=== PATIENT | male | born 1940 | race Caucasian/White ===

== ENCOUNTER 2016-12-17 21:16 | Emergency (ER) | payer MEDICARE, OTHER ==
[2016-12-17] MEDS ORDERED: SODIUM CHLORIDE 0.9% 1,000 ML IV ONE (21:49)
[2016-12-17] MEDS ORDERED: diltiaZEM INJ 5 MG/ML VIAL IVP STA (21:55)
[2016-12-17 21:57] LABS: BASOPHILS # (AUTO) 0.1 10^3/uL (0.0-0.1); BASOPHILS % (AUTO) 0.7 %; EOSINOPHILS # (AUTO) 0.1 10^3/uL (0.0-0.7); EOSINOPHILS % (AUTO) 0.4 %; HCT - HEMATOCRIT 34.1 % (42.0-52.0); HGB - HEMOGLOBIN 11.5 g/dL (14.0-18.0); LYMPHOCYTES # (AUTO) 1.1 10^3/uL (1.5-3.5); LYMPHOCYTES % (AUTO) 8.7 %; MEAN CORPUSCULAR HEMOGLOBIN 32.4 pg (27.0-31.0); MEAN CORPUSCULAR HGB CONC 33.7 g/dL (32.0-36.0); MEAN CORPUSCULAR VOLUME 96.2 fL (80.0-94.0); MEAN PLATELET VOLUME 7.9 fL (7.4-11.4); MONOCYTES # (AUTO) 0.8 10^3/uL (0.0-1.0); MONOCYTES % (AUTO) 6.5 %; NEUTROPHILS # (AUTO) 10.3 10^3/uL (1.5-6.6); NEUTROPHILS % (AUTO) 83.7 %; RED BLOOD COUNT 3.55 10^6/uL (4.70-6.10); RED CELL DISTRIBUTION WIDTH 15.4 % (12.0-15.0); UNCORRECTED WHITE BLOOD COUNT 12.4 x10^3/uL; WHITE BLOOD COUNT 12.4 x10^3/uL (4.8-10.8)
[2016-12-17] MEDS ORDERED: diltiaZEM INJ 5 MG/ML VIAL ONE (22:11)
[2016-12-17 22:13] LABS: ALBUMIN/GLOBULIN RATIO 1.1 (1.0-2.2); BILIRUBIN,TOTAL 2.1 mg/dL (0.2-1.0); CREATININE 1.6 mg/dL (0.6-1.2); MAGNESIUM 1.8 mg/dL (1.7-2.8); POTASSIUM 4.9 mmol/L (3.5-5.0); TOTAL PROTEIN 6.6 g/dL (6.7-8.2)
--- NOTE | 2016-12-17 22:29 | XRAY Preliminary Report ---
Exam: XR Chest 2 View PA/LAT IMPRESSION: No acute pulmonary process. [facility] SITE ID: [id number]
[2016-12-17 22:37] LABS: INR 2.8 (0.8-1.2); PT - PROTHROMBIN TIME 32.2 secs (9.9-12.6)
--- NOTE | 2016-12-17 22:46 | XRAY Report ---
EXAM: CHEST RADIOGRAPHY EXAM DATE: 12/17/2016 10:17 PM. CLINICAL HISTORY: Chest pain. COMPARISON: None. TECHNIQUE: 2 views. FINDINGS: Lungs/Pleura: No focal opacities evident. No pleural effusion. No pneumothorax. Normal volumes. Mediastinum: Cardiac defibrillator is noted with lead in the right ventricle. EKG leads overlie the c hest. 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 IMPRESSION: No acute pulmonary process. [facility] Referring Provider Line: [phone] SITE ID: [id number]
[2016-12-18 00:29] LABS: BILIRUBIN,URINE NEGATIVE (NEGATIVE); PH,URINE 5.5 PH (5.0-7.5); UA w/ MICROSCOPIC CHARGE YES
[2016-12-18 00:37] LABS: UR CULTURE IF IND NOT INDICATED; WBC,URINE 0-3 /HPF (0-3)
--- NOTE | 2016-12-18 01:07 | ED Physician Documentation ---
PD HPI SYNCOPE - Stated complaint Stated Complaint: LIGHTHEADEDNESS - Chief complaint Chief Complaint: General - History obtained from History obtained from: Patient, Family - History of Present Illness Timing - onset: Yesterday Duration: Minutes Preceding symptoms: Light headed Associated symptoms: No: Chest pain, Palpitations, Dyspnea Contributing factors: No: Recent med change Injury occurred: None Similar symptoms before: Has not had sx before Recently seen: Not recently seen - Additional information Additional information: Patient is a 76 year old male with a history of a fib who is presenting to the emergency department for light headedness when he stands up. Patient states that yesterday he had some chest pain, that required nitro. Patient states that his chest pain went away but today he felt dizzy when he stood up. Upon my initial evaluation in the emergency department patient was awake alert and comfortable when lying down, he only had dizziness with standing. Review of Systems Constitutional: denies: Fever, Chills, Myalgias Eyes: denies: Decreased vision, Photophobia Ears: denies: Ear pain, Drainage/discharge Nose: denies: Rhinorrhea / runny nose, Congestion Throat: denies: Oral lesions / sores, Sore throat Cardiac: denies: Chest pain / pressure, Palpitations, Pedal edema, Calf pain Respiratory: denies: Dyspnea, Cough, Wheezing GI: denies: Abdominal Pain, Nausea, Vomiting : denies: Dysuria, Frequency, Hesitancy Skin: denies: Rash, Lesions, Abrasion (s) Musculoskeletal: denies: Neck pain, Back pain, Extremity pain, Joint pain Neurologic: reports: Other (dizzy). denies: Generalized weakness, Focal weakness, Syncope, Seizure, Confused, Altered mental status, LOC Immunocompromised: denies: Immunocompromised PD PAST MEDICAL HISTORY - Past Medical History Past Medical History: Yes Cardiovascular: Hypertension, Angina, Atrial fibrillation, Arrhythmia Respiratory: None Endocrine/Autoimmune: Type 2 diabetes GI: None : None HEENT: None Psych: None Musculoskeletal: None Derm: None - Past Surgical History Past Surgical History: Yes General: Appendectomy, Colonoscopy Ortho: Shoulder arthroplasty Cardiovascular: Pacemaker, AICD HEENT: Tonsil/Adenoidectomy Derm: Skin cancer surgery - Present Medications Home Medications: Ambulatory Orders Medication Instructions Recorded Confirmed Allopurinol 100 mg PO BID 11/01/13 12/17/16 Aspirin Chewable [St Momo 81 mg PO DAILY 11/01/13 12/17/16 Aspirin] Atenolol 25 mg PO DAILY 11/01/13 12/17/16 Digoxin [Lanoxin] 0.25 mg PO DAILY 11/01/13 12/17/16 Lisinopril 10 mg PO TID 11/01/13 12/17/16 Warfarin [Coumadin] 5 mg PO DAILY 11/01/13 12/17/16 glipiZIDE [Glucotrol] 5 mg PO BID 11/01/13 12/17/16 Furosemide 30 mg PO DAILY 02/28/14 12/17/16 Magnesium Chloride [Slo Mag] 64 mg PO TID 02/28/14 12/17/16 [place]-3 Fatty Acids [Fish Oil] 1,000 mg PO DAILY 02/28/14 12/17/16 Atorvastatin [Lipitor] 20 mg QPM 12/17/16 12/17/16 - Allergies Allergies/Adverse Reactions: Allergies Allergy/AdvReac Type Severity Reaction Status Date / Time hydrocodone bitartrate * Allergy Severe Hallucinati Verified 12/17/16 21:47 [From [place]] ons quinine Allergy Severe Confusion Verified 12/17/16 21:47 - Social History Does the pt smoke?: No Smoking Status: Never smoker Does the pt drink ETOH?: No Does the pt have substance abuse?: No - Immunizations Immunizations are current?: Yes PD ED PE NORMAL - Vitals Vital signs reviewed: Yes - General General: Alert and oriented X 3, No acute distress - HEENT HEENT: Atraumatic, PERRL, Pharynx benign - Neck Neck: Supple, no meningeal sign, No JVD - Respiratory Respiratory: No respiratory distress, Clear bilaterally - Abdomen Abdomen: Soft, Non tender, Non distended - Derm Derm: Normal color, No rash - Extremities Extremities: No deformity, No tenderness to palpate, No edema, No calf tenderness / cord - Neuro Neuro: Alert and oriented X 3, No motor deficit, No sensory deficit, Normal speech - Psych Psych: Normal mood, Normal affect PD ED PE EXPANDED - Cardiac Cardiac: Abnormal Rate, Irregularly irregular, Radial strong equal - Rectal Rectal: Heme Occult Pos - QC +, Other (light colored stools). No: Mass, Hemorrhoid, Fissure Results - Vitals Vitals: Vital Signs - 24 hr 07/12/17/16 12/17/16 21:25 21:42 21:45 Temperature 36.4 C L Heart Rate 110 H 133 H Respiratory 17 18 Rate Blood Pressure 110/66 106/43 L Blood Pressure 106/43 L [Left] Blood Pressure 110/69 [Right] O2 Saturation 98 96 12/17/16 12/17/16 12/17/16 22:15 22:40 23:17 Temperature Heart Rate 125 H 106 H 108 H Respiratory 16 20 20 Rate Blood Pressure 83/54 L 105/53 L 100/45 L Blood Pressure [Left] Blood Pressure [Right] O2 Saturation 98 99 12/17/16 12/18/16 12/18/16 23:44 00:36 01:00 Temperature Heart Rate 93 114 H 118 H Respiratory 17 18 Rate Blood Pressure 102/43 L 120/52 L 98/48 L Blood Pressure [Left] Blood Pressure [Right] O2 Saturation 99 100 12/18/16 12/18/16 12/18/16 01:15 01:25 01:30 Temperature 36.6 C Heart Rate 102 H 112 H 104 H Respiratory 20 Rate Blood Pressure 57/29 L 107/46 L 111/54 L Blood Pressure [Left] Blood Pressure [Right] O2 Saturation 98 12/18/16 01:40 Temperature Heart Rate 109 H Respiratory 17 Rate Blood Pressure 102/67 Blood Pressure [Left] Blood Pressure [Right] O2 Saturation 99 Oxygen O2 Source Room air - EKG (time done) 2122 Rate: Rate (enter#) (111) Rhythm: Atrial fibrillation D Hanis: Normal Ischemia: ST depression (lateral lead), Non specific changes Compare to prior EKG: Old EKG unavailable - Labs Labs: Laboratory Tests 12/17/16 12/17/16 12/17/16 21:50 21:50 21:50 WBC 12.4 H RBC 3.55 L Hgb 11.5 L Hct 34.1 L MCV 96.2 H MCH 32.4 H MCHC 33.7 RDW 15.4 H Plt Count 136 MPV 7.9 Neut # 10.3 H Lymph # 1.1 L [place]edar # 0.8 Eos # 0.1 Baso # 0.1 Absolute Nucleated RBC 0.00 Nucleated RBCs 0.0 PT INR Sodium 135 Potassium 4.9 Chloride 103 Carbon Dioxide 23 Anion Gap 9.0 BUN 44 H Creatinine 1.6 H Estimated GFR (MDRD) 42 L Glucose 295 H Calcium 9.0 Phosphorus 4.0 Magnesium 1.8 Total Bilirubin 2.1 H AST 33 ALT 28 Alkaline Phosphatase 60 Troponin I < 0.04 B-Natriuretic Peptide Total Protein 6.6 L Albumin 3.5 Globulin 3.1 Albumin/Globulin Ratio 1.1 Lipase 39 TSH Urine Color Urine Clarity Urine pH Ur Specific [place] Urine Protein Urine Glucose (UA) Urine Ketones Urine Occult Blood Urine Nitrite Urine Bilirubin Urine Urobilinogen Ur Leukocyte Esterase Urine RBC Urine WBC Ur Squamous Epith Cells Urine Bacteria Urine Casts Urine Mucus Ur Microscopic Review Urine Culture Comments 12/17/16 12/17/16 12/17/16 21:50 21:50 22:20 WBC RBC Hgb Hct MCV MCH MCHC RDW Plt Count MPV Neut # Lymph # [place] # Eos # Baso # Absolute Nucleated RBC Nucleated RBCs PT 32.2 H INR 2.8 H Sodium Potassium Chloride Carbon Dioxide Anion Gap BUN Creatinine Estimated GFR (MDRD) Glucose Calcium Phosphorus Magnesium Total Bilirubin AST ALT Alkaline Phosphatase Troponin I B-Natriuretic Peptide 57 Total Protein Albumin Globulin Albumin/Globulin Ratio Lipase TSH 1.11 Urine Color Urine Clarity Urine pH Ur Specific [place] Urine Protein Urine Glucose (UA) Urine Ketones Urine Occult Blood Urine Nitrite Urine Bilirubin Urine Urobilinogen Ur Leukocyte Esterase Urine RBC Urine WBC Ur Squamous Epith Cells Urine Bacteria Urine Casts Urine Mucus Ur Microscopic Review Urine Culture Comments 12/18/16 00:05 WBC RBC Hgb Hct MCV MCH MCHC RDW Plt Count MPV Neut # Lymph # [place] # Eos # Baso # Absolute Nucleated RBC Nucleated RBCs PT INR Sodium Potassium Chloride Carbon Dioxide Anion Gap BUN Creatinine Estimated GFR (MDRD) Glucose Calcium Phosphorus Magnesium Total Bilirubin AST ALT Alkaline Phosphatase Troponin I B-Natriuretic Peptide Total Protein Albumin Globulin Albumin/Globulin Ratio Lipase TSH Urine Color YELLOW Urine Clarity CLEAR Urine pH 5.5 Ur Specific [place] 1.025 Urine Protein 30 H Urine Glucose (UA) 100 H Urine Ketones TRACE Urine Occult Blood NEGATIVE Urine Nitrite NEGATIVE Urine Bilirubin NEGATIVE Urine Urobilinogen 0.2 (NORMAL) Ur Leukocyte Esterase NEGATIVE Urine RBC 0-5 Urine WBC 0-3 Ur Squamous Epith Cells FEW Squamous Urine Bacteria Rare Urine Casts 11-25 Fine Granular Urine Mucus Few Strands Ur Microscopic Review INDICATED Urine Culture Comments NOT INDICATED - Rads (name of study) chest x-ray Radiology: Final report received (no acute disease process) PD MEDICAL DECISION MAKING - ED course Complexity details: reviewed old records, reviewed results, re-evaluated patient , considered differential, d/w patient, d/w [facility] ED course: Patient was seen and examined at bedside. IV access was gained and labs were drawn. ekg was performed and showed a fib. Patient was hypotensive with systolics in the 80s-90s. Patient was started with a fluid bolus. patient's labs showed a negative troponin, and negative bnp. chest x-ray was unremarkable. patient originally responded well to the fluids. Cardizem was originally ordered but patient heart rate was very varied. It went from 95- 130. Patient continued to deny any chest pain, but he would get hypotensive. Patient was treated with a second fluid bolus. Due to hypotension and the postural dizziness patient required further observation and care. there were no beds in the hospital so at the request of the [facility] was called. Case was discussed with covering physican and patient was transported for further evaluation and care. Upon discharge patient's systolic bp was 102 ( baseline 110). Patient denied any chest pain, dizziness or shortness of breath. Departure - Departure Disposition: 02 Transfer Acute Care Hosp Clinical Impression: Hypotension, A-fib Condition: Stable Discharge Date/Time: 12/18/16 01:45
[2016-12-18 02:16] VITALS: BP 102/67
[2016-12-18] MEDS ORDERED: SODIUM CHLORIDE 0.9% 1,000 ML IV ONE (02:18)
== END 2016-12-18 01:45 | disposition short-term general hospital (02) ==
LOC: ED 21:16
DX: I95.9 Hypotension, unspecified (principal); I48.91 Unspecified atrial fibrillation; I10 Essential (primary) hypertension; E11.9 Type 2 diabetes mellitus without complications; Z79.01 Long term (current) use of anticoagulants; Z79.84 Long term (current) use of oral hypoglycemic drugs; Z95.0 Presence of cardiac pacemaker; Z79.82 Long term (current) use of aspirin
CPT/HCPCS: 36415; 71020; 80053; 81001; 81003; 83690; 83735; 83880; 84100; 84443; 84484; 85025; 85610; 87086; 93005; 99284; 99285

== ENCOUNTER 2016-12-18 01:50 | Outpatient (CLI) | payer MEDICARE, OTHER | END 2016-12-18 01:51 | disposition short-term general hospital (02) | LOC: EMS 01:50 | PROVIDERS: ATTEND Surgery | DX: R07.9 Chest pain, unspecified (principal) | CPT/HCPCS: A0425; A0426 ==

== ENCOUNTER 2016-12-26 08:05 | Outpatient (CLI) | payer MEDICARE, OTHER ==
[2016-12-26 12:49] LABS: INR 1.6 (0.8-1.2); PT - PROTHROMBIN TIME 18.2 secs (9.9-12.6)
[2016-12-26 12:53] LABS: BASOPHILS % (AUTO) 0.1 %; EOSINOPHILS % (AUTO) 0.5 %; HCT - HEMATOCRIT 32.5 % (42.0-52.0); HGB - HEMOGLOBIN 10.7 g/dL (14.0-18.0); LYMPHOCYTES % (AUTO) 4.4 %; MEAN CORPUSCULAR HGB CONC 32.9 g/dL (32.0-36.0); MEAN CORPUSCULAR VOLUME 97.1 fL (80.0-94.0); MEAN PLATELET VOLUME 8.2 fL (7.4-11.4); MONOCYTES % (AUTO) 9.3 %; NEUTROPHILS % (AUTO) 85.7 %; RED BLOOD COUNT 3.34 10^6/uL (4.70-6.10); RED CELL DISTRIBUTION WIDTH 16.6 % (12.0-15.0); UNCORRECTED WHITE BLOOD COUNT 24.4 x10^3/uL; WHITE BLOOD COUNT 24.4 x10^3/uL (4.8-10.8)
[2016-12-26 13:50] LABS: HEMOGLOBIN A1C 0.44 g/dL
[2016-12-26 14:09] LABS: BAND NEUTROPHILS % (MANUAL) 5 %; EOSINOPHILS % (MANUAL) 1 %; LYMPHOCYTES % (MANUAL) 6 %; NEUTROPHILS % (MANUAL) 76 %; TOTAL CELLS COUNTED 100
[2016-12-26 14:10] LABS: NP AUTO DIFFERENTIAL? YES; NP MAN DIFFERENTIAL? NO; WBC MORPHOLOGY (MULTIPLE) 1+ TOXIC GRANULATION (NORMAL)
[2016-12-26 14:15] LABS: ALBUMIN/GLOBULIN RATIO 0.8 (1.0-2.2); CALCIUM 8.4 mg/dL (8.5-10.3); CARBON DIOXIDE - CO2 21 mmol/L (21-32); CHLORIDE 98 mmol/L (101-111); CREATININE 3.1 mg/dL (0.6-1.2); GFR - MDRD 20 (>89); GLUCOSE 121 mg/dL (70-100); POTASSIUM 3.9 mmol/L (3.5-5.0); SODIUM 133 mmol/L (135-145); TOTAL PROTEIN 6.6 g/dL (6.7-8.2)
[2016-12-26 14:16] LABS: BUN - BLOOD UREA NITROGEN 100 mg/dL (6-20)
== END 2016-12-26 08:06 | disposition home or self-care (01) ==
LOC: LAB.WCP 08:05
PROVIDERS: ATTEND Family Medicine
DX: I48.91 Unspecified atrial fibrillation (principal); E11.9 Type 2 diabetes mellitus without complications; R16.0 Hepatomegaly, not elsewhere classified; R06.00 Dyspnea, unspecified; R05 Cough; I25.10 Atherosclerotic heart disease of native coronary artery without angina pectoris
CPT/HCPCS: 36415; 80053; 83036; 83880; 84443; 85025; 85610

== ENCOUNTER 2016-12-26 15:30 | Outpatient (CLI) | payer MEDICARE, OTHER | END 2016-12-26 15:31 | disposition critical access hospital (66) | LOC: EMS 15:30 | PROVIDERS: ATTEND Surgery | DX: R53.1 Weakness (principal); R42 Dizziness and giddiness; R03.1 Nonspecific low blood-pressure reading | CPT/HCPCS: A0425; A0427 ==

== ENCOUNTER 2016-12-26 15:43 | Emergency (ER) | payer MEDICARE, OTHER ==
[2016-12-26] MEDS ORDERED: SODIUM CHLORIDE 0.9% 1,000 ML IV ONE (15:55)
--- NOTE | 2016-12-26 16:03 | ED Physician Documentation ---
History of Present Illness - Stated complaint Stated Complaint: WEAKNESS - Chief complaint Chief Complaint: General - History obtained from History obtained from: Patient - History of Present Illness Timing: Other (76-year-old gentleman was seen here and then sent [facility] and subsequently to [facility]. I will try to get the discharge summary. He has a lesion on his liver, presumably cancer. Since discharge from the hospital a few days ago he has been feeling weak and lightheaded. He went to his doctor's office today for the same complaints and was noted to have a white count of 24,000, renal failure with a BUN Of over 100 and a BUN of 3.1.) Review of Systems Ten Systems: 10 systems reviewed and negative Constitutional: reports: Chills. denies: Fever Nose: denies: Rhinorrhea / runny nose, Congestion Respiratory: reports: Cough. denies: Dyspnea GI: reports: Diarrhea. denies: Abdominal Pain, Nausea, Vomiting PD PAST MEDICAL HISTORY - Past Medical History Cardiovascular: Hypertension, Angina, Atrial fibrillation, Arrhythmia Respiratory: None Endocrine/Autoimmune: Type 2 diabetes GI: None : None HEENT: None Psych: None Musculoskeletal: None Derm: None - Past Surgical History Past Surgical History: Yes General: Appendectomy, Colonoscopy Ortho: Shoulder arthroplasty Cardiovascular: Pacemaker, AICD HEENT: Tonsil/Adenoidectomy Derm: Skin cancer surgery - Present Medications Home Medications: Ambulatory Orders Medication Instructions Recorded Confirmed Allopurinol 100 mg PO BID 11/01/13 12/26/16 Aspirin Chewable [St Momo 81 mg PO DAILY 11/01/13 12/26/16 Aspirin] Atenolol 25 mg PO DAILY 11/01/13 12/26/16 Digoxin [Lanoxin] 0.25 mg PO DAILY 11/01/13 12/26/16 Lisinopril 10 mg PO TID 11/01/13 12/26/16 glipiZIDE [Glucotrol] 5 mg PO BID 11/01/13 12/26/16 Furosemide 30 mg PO DAILY 02/28/14 12/26/16 Magnesium Chloride [Slo Mag] 64 mg PO TID 02/28/14 12/26/16 [place]-3 Fatty Acids [Fish Oil] 1,000 mg PO DAILY 02/28/14 12/26/16 Atorvastatin [Lipitor] 20 mg QPM 12/17/16 12/26/16 - Allergies Allergies/Adverse Reactions: Allergies Allergy/AdvReac Type Severity Reaction Status Date / Time hydrocodone bitartrate * Allergy Severe Hallucinati Verified 12/17/16 21:47 [From [place]] ons quinine Allergy Severe Confusion Verified 12/17/16 21:47 - Social History Does the pt smoke?: No Smoking Status: Never smoker Does the pt drink ETOH?: No Does the pt have substance abuse?: No - Family History Family history: reports: Non contributory - Immunizations Immunizations are current?: Yes PD ED PE NORMAL - Vitals Vital signs reviewed: Yes - General General: Alert and oriented X 3, No acute distress - HEENT HEENT: PERRL, EOMI - Neck Neck: Supple, no meningeal sign, No bony TTP - Cardiac Cardiac: RRR, Other (II/ SM AT LLSB, Chronic per patient) - Respiratory Respiratory: Other (Rhonchi both bases) - Abdomen Abdomen: Soft, Non tender - Back Back: No CVA TTP, No spinal TTP - Derm Derm: Normal color, Warm and dry, No rash - Extremities Extremities: Other (Bilateral pitting pedal edema) - Neuro Neuro: Alert and oriented X 3, Normal speech - Psych Psych: Normal mood, Normal affect Results - Vitals Vitals: Vital Signs - 24 hr 12/26/16 12/26/16 12/26/16 15:45 16:40 17:45 Temperature 36.5 C Heart Rate 51 L 50 L 50 L Respiratory 16 21 Rate Blood Pressure 80/41 L 85/45 L 85/53 L O2 Saturation 95 97 12/26/16 12/26/16 18:13 18:15 Temperature Heart Rate 50 L 50 L Respiratory 22 Rate Blood Pressure 84/45 L 81/44 L O2 Saturation 98 Oxygen O2 Source Room air - EKG (time done) 1554 Rate: Rate (enter#) (50) Rhythm: Other (PACED) Computer interpretation: Agree with computer - Labs Labs: Laboratory Tests 12/26/16 12/26/16 12/26/16 16:10 16:17 17:30 Lactic Acid 2.1 Urine Color YELLOW Urine Clarity CLEAR Urine pH 5.0 Ur Specific [place] 1.025 Urine Protein 100 H Urine Glucose (UA) NEGATIVE Urine Ketones NEGATIVE Urine Occult Blood LARGE H Urine Nitrite NEGATIVE Urine Bilirubin NEGATIVE Urine Urobilinogen 0.2 (NORMAL) Ur Leukocyte Esterase NEGATIVE Urine RBC None Seen Urine WBC 0-3 Ur Squamous Epith Cells FEW Squamous Amorphous Sediment Moderate Urine Bacteria Few Urine Casts 6-10 Hyaline Casts Ur Microscopic Review INDICATED Urine Culture Comments NOT INDICATED Last Dose Date UNKNOWN Last Dose Time UNKNOWN Digoxin 2.0 - Rads (name of study) 2v chestt Radiology: EMP read contemporaneously (Small bilateral pleural effusions, moderate right mid and lower lung airspace disease could be pneumonia, increased pulmonary venous congestion, stable cardiomegaly and pacemaker.) PD MEDICAL DECISION MAKING - ED course Complexity details: reviewed old records (Records received from [facility], he was sent there from [facility] with hemoperitoneum peritoneum due to extravasation from a liver mass, he had received 4 units of blood, 4 of FFP, 1 of platelets, prothrombin concentrate, and vitamin K prior to transfer. The artery was embolized by angiography. It was felt likely that the mass represented hepatocellular carcinoma, although that diagnosis has not been proven yet. He did have positive troponins well there. I think this was presumed to be due to hemorrhagic shock. His renal function was normal.) ED course: 76-year-old gentleman with recent discharge from tertiary facility presents modestly hypotensive with evidence of pneumonia. After fluid resuscitation his blood pressure really had not changed and he was started on low-dose Levophed. I spoke with the hospitalist here, Dr. Gonzales who felt that he should be transferred back to the tertiary facility. He was accepted back to [facility] by Clif Winslow, the data entry coordinator at approximately 6:10 PM. - Critical Care Time(min): 45 Time Includes: Direct patient care, Review records, Reassess patient, Document care, Coordinate care, Medical consult, Family consult for tx dec Data interpretation: Labs, Pulse ox Procedures included in critical care time: Peripheral IV Procedures excluded from critical care time: EKG Departure - Departure Disposition: 02 Transfer Acute Care Hosp Clinical Impression: Renal failure, Shock Hypotension Qualifiers: Hypotension type: unspecified hypotension type Qualified Code(s): I95.9 - Hypotension, unspecified Pneumonia Qualifiers: Pneumonia type: due to unspecified organism Laterality: right Lung location: lower lobe of lung Qualified Code(s): J18.1 - Lobar pneumonia, unspecified organism Condition: Critical
--- NOTE | 2016-12-26 17:07 | XRAY Preliminary Report ---
Exam: XR Chest 2 View PA/LAT IMPRESSION: Small posterior pleural effusions. Moderate right mid and lower lung airspace disease, ap pears to be in the right lower lobe, could represent pneumonia, increased from the prior. Pulmonary v enous congestion, appears increased. Stable cardiomegaly and pacemaker. [facility] SITE ID: [id number]
--- NOTE | 2016-12-26 17:09 | XRAY Report ---
EXAM: CHEST RADIOGRAPHY EXAM DATE: 12/26/2016 04:37 PM. CLINICAL HISTORY: Sepsis. COMPARISON: Chest 12/26/2016. TECHNIQUE: 2 views. FINDINGS: Lungs/Pleura: Small posterior pleural effusions. Moderate right mid and lower lung airspace disease, appears to be in the right lower lobe, could represent pneumonia, increased from the prior. Pulmonary venous congestion, appears increased. Mediastinum: Stable cardiomegaly and pacemaker. IMPRESSION: Small posterior pleural effusions. Moderate right mid and lower lung airspace disease, ap pears to be in the right lower lobe, could represent pneumonia, increased from the prior. Pulmonary v enous congestion, appears increased. Stable cardiomegaly and pacemaker. [facility] Referring Provider Line: [phone] SITE ID: [id number]
[2016-12-26] MEDS ORDERED: VANCOMYCIN INJ 1.5 GM in SODIUM CHLORIDE 0.9% 500 ML IV STA (17:10)
[2016-12-26] MEDS ORDERED: CEFEPIME 2 GM in SODIUM CHLORIDE 0.9% MINIBAG 100 ML IV STA (17:10)
[2016-12-26 17:37] LABS: BILIRUBIN,URINE NEGATIVE (NEGATIVE); UA w/ MICROSCOPIC CHARGE YES
[2016-12-26 17:45] LABS: WBC,URINE 0-3 /HPF (0-3)
[2016-12-26 17:46] LABS: UR CULTURE IF IND NOT INDICATED
[2016-12-26 19:51] VITALS: BP 103/69
== END 2016-12-26 19:59 | disposition short-term general hospital (02) ==
LOC: EDUNIT# → ED 15:43
DX: N17.0 Acute kidney failure with tubular necrosis (principal); I95.9 Hypotension, unspecified; J18.9 Pneumonia, unspecified organism; I10 Essential (primary) hypertension; E11.9 Type 2 diabetes mellitus without complications; Z95.810 Presence of automatic (implantable) cardiac defibrillator; Z85.828 Personal history of other malignant neoplasm of skin; Z79.82 Long term (current) use of aspirin
CPT/HCPCS: 36415; 71020; 80053; 80162; 81001; 83036; 83605; 83880; 84443; 85025; 85610; 87040; 93005; 96365; 96367; 96375; 99285; 99291; J3370; 81003; 87086

== ENCOUNTER 2017-01-07 10:40 | Outpatient (CLI) | payer MEDICARE, OTHER ==
[2017-01-07 12:39] LABS: BASOPHILS # (AUTO) 0.1 10^3/uL (0.0-0.1); BASOPHILS % (AUTO) 1.1 %; EOSINOPHILS # (AUTO) 0.1 10^3/uL (0.0-0.7); EOSINOPHILS % (AUTO) 1.2 %; HCT - HEMATOCRIT 33.1 % (42.0-52.0); HGB - HEMOGLOBIN 10.8 g/dL (14.0-18.0); LYMPHOCYTES # (AUTO) 0.8 10^3/uL (1.5-3.5); LYMPHOCYTES % (AUTO) 10.7 %; MEAN CORPUSCULAR HEMOGLOBIN 32.6 pg (27.0-31.0); MEAN CORPUSCULAR HGB CONC 32.7 g/dL (32.0-36.0); MEAN CORPUSCULAR VOLUME 99.6 fL (80.0-94.0); MEAN PLATELET VOLUME 8.2 fL (7.4-11.4); MONOCYTES # (AUTO) 0.7 10^3/uL (0.0-1.0); MONOCYTES % (AUTO) 9.1 %; NEUTROPHILS # (AUTO) 5.6 10^3/uL (1.5-6.6); NEUTROPHILS % (AUTO) 77.9 %; RED BLOOD COUNT 3.32 10^6/uL (4.70-6.10); RED CELL DISTRIBUTION WIDTH 19.4 % (12.0-15.0); UNCORRECTED WHITE BLOOD COUNT 7.2 x10^3/uL; WHITE BLOOD COUNT 7.2 x10^3/uL (4.8-10.8)
[2017-01-07 12:48] LABS: CALCIUM 8.6 mg/dL (8.5-10.3); POTASSIUM 4.3 mmol/L (3.5-5.0)
== END 2017-01-07 10:41 | disposition home or self-care (01) ==
LOC: LAB.R 10:40
DX: A41.9 Sepsis, unspecified organism (principal); D64.9 Anemia, unspecified
CPT/HCPCS: 80048; 85025

== ENCOUNTER 2017-01-27 11:35 | Outpatient (CLI) | payer MEDICARE, OTHER ==
[2017-01-27 21:06] LABS: BASOPHILS # (AUTO) 0.1 10^3/uL (0.0-0.1); BASOPHILS % (AUTO) 1.2 %; EOSINOPHILS # (AUTO) 0.1 10^3/uL (0.0-0.7); EOSINOPHILS % (AUTO) 0.9 %; HCT - HEMATOCRIT 38.6 % (42.0-52.0); HGB - HEMOGLOBIN 12.6 g/dL (14.0-18.0); LYMPHOCYTES % (AUTO) 15.7 %; MEAN CORPUSCULAR HEMOGLOBIN 32.6 pg (27.0-31.0); MEAN CORPUSCULAR HGB CONC 32.5 g/dL (32.0-36.0); MEAN CORPUSCULAR VOLUME 100.3 fL (80.0-94.0); MEAN PLATELET VOLUME 7.7 fL (7.4-11.4); MONOCYTES # (AUTO) 0.7 10^3/uL (0.0-1.0); MONOCYTES % (AUTO) 10.7 %; NEUTROPHILS # (AUTO) 4.5 10^3/uL (1.5-6.6); NEUTROPHILS % (AUTO) 71.5 %; RED BLOOD COUNT 3.85 10^6/uL (4.70-6.10); RED CELL DISTRIBUTION WIDTH 17.4 % (12.0-15.0); UNCORRECTED WHITE BLOOD COUNT 6.2 x10^3/uL; WHITE BLOOD COUNT 6.2 x10^3/uL (4.8-10.8)
[2017-01-27 21:17] LABS: HEMOGLOBIN A1C 0.43 g/dL
[2017-01-27 21:23] LABS: ALBUMIN/GLOBULIN RATIO 0.9 (1.0-2.2); BILIRUBIN,TOTAL 1.7 mg/dL (0.2-1.0); BUN - BLOOD UREA NITROGEN 19 mg/dL (6-20); CALCIUM 9.5 mg/dL (8.5-10.3); CARBON DIOXIDE - CO2 27 mmol/L (21-32); CHLORIDE 106 mmol/L (101-111); GFR - MDRD 72 (>89); GLUCOSE 83 mg/dL (70-100); IRON 75 ug/dL (45-182); SODIUM 138 mmol/L (135-145); TOTAL IRON BINDING CAPACITY 288 ug/dL (250-450); TOTAL PROTEIN 7.4 g/dL (6.7-8.2); TRANSFERRIN 206 mg/dL (180-329)
[2017-01-27 21:29] LABS: FERRITIN 439.5 ng/mL (23.9-336.2)
[2017-01-27 21:42] LABS: THYROID STIMULATING HORMONE 1.29 uIU/mL (0.34-5.60)
== END 2017-01-27 11:36 | disposition home or self-care (01) ==
LOC: LAB.WCP 11:35
PROVIDERS: ATTEND Family Medicine
DX: R16.0 Hepatomegaly, not elsewhere classified (principal); E11.9 Type 2 diabetes mellitus without complications; R60.9 Edema, unspecified; I10 Essential (primary) hypertension
CPT/HCPCS: 36415; 80053; 82728; 83036; 83540; 84443; 84466; 85025

== ENCOUNTER 2017-02-04 10:50 | Outpatient (CLI) | payer MEDICARE, OTHER | END 2017-02-04 10:51 | disposition home or self-care (01) | LOC: DI 10:50 | DX: Z53.9 Procedure and treatment not carried out, unspecified reason (principal); K76.9 Liver disease, unspecified; K74.60 Unspecified cirrhosis of liver ==

== ENCOUNTER 2017-02-05 14:55 | Outpatient (CLI) | payer MEDICARE, OTHER ==
[2017-02-05] MEDS ORDERED: IOPAMIDOL-300 100 ML VIAL ONE (15:14)
[2017-02-05] MEDS ORDERED: IOPAMIDOL-300 50 ML VIAL PO ONE (15:15)
[2017-02-05] MEDS ORDERED: IOPAMIDOL-300 100 ML VIAL IVP ONE (15:46)
--- NOTE | 2017-02-06 09:36 | CT Report ---
CT OF ABDOMEN WITH AND WITHOUT CONTRAST: 02/05/2017 CLINICAL INDICATION: Cirrhosis. TECHNIQUE: Axial CT images of the abdomen were obtained prior to and following 100 mL of Isovue-300 i ntravenously, in early arterial, portovenous, and delayed phases. No previous CT is available for jun mccartney. FINDINGS: Limited evaluation of the lung bases demonstrates right greater than left pleural effusion s with associated atelectasis. ABDOMEN: The liver demonstrates nodularity of its contour, compatible with cirrhosis. No focal hepati c lesion is seen. The spleen is not enlarged. The kidneys demonstrate cortical cysts bilaterally. No hydronephrosis or nephrolithiasis is seen. No solid renal lesion is appreciated. The pancreas and adr enal glands are unremarkable. The gallbladder is not dilated. No bowel dilatation, free gas, or free fluid is present. The osseous structures demonstrate degenerative changes. IMPRESSION: CIRRHOTIC CHANGES IN THE LIVER. NO EVIDENCE OF FOCAL HEPATIC MASS. NO SPLENOMEGALY OR CITES. RIGHT GREATER THAN LEFT PLEURAL EFFUSIONS WITH BASILAR ATELECTASIS. In accordance with CT protocol optimization, one or more of the following dose reduction techniques w ere utilized for this exam: automated exposure control, adjustment of mA and/or KV based on patient size, or use of iterative reconstructive technique. JOB #: [id number] EXT JOB #:[id number]
== END 2017-02-05 14:56 | disposition home or self-care (01) ==
LOC: DI 14:55
DX: K74.60 Unspecified cirrhosis of liver (principal); J90 Pleural effusion, not elsewhere classified; J98.11 Atelectasis
CPT/HCPCS: 74170; Q9967

== ENCOUNTER 2017-03-07 06:13 | Outpatient (CLI) | payer MEDICARE, OTHER | END 2017-03-07 06:14 | disposition short-term general hospital (02) | LOC: EMS 06:13 | PROVIDERS: ATTEND Surgery | DX: R06.02 Shortness of breath (principal); R42 Dizziness and giddiness | CPT/HCPCS: A0425; A0427 ==

== ENCOUNTER 2017-05-02 09:22 | Outpatient (CLI) | payer MEDICARE, OTHER ==
[2017-05-02 10:05] LABS: BILIRUBIN,TOTAL 1.4 mg/dL (0.2-1.0); CALCIUM 9.5 mg/dL (8.5-10.3); POTASSIUM 3.6 mmol/L (3.5-5.0); TOTAL PROTEIN 7.4 g/dL (6.7-8.2)
[2017-05-02] MEDS ORDERED: IOPAMIDOL-300 50 ML VIAL ONE (10:19)
[2017-05-02] MEDS ORDERED: IOPAMIDOL-300 100 ML VIAL ONE (10:19)
[2017-05-02] MEDS ORDERED: IOPAMIDOL-300 100 ML VIAL IVP ONE (10:26)
[2017-05-02] MEDS ORDERED: IOPAMIDOL-300 50 ML VIAL PO ONE (10:26)
--- NOTE | 2017-05-03 15:26 | CT Report ---
EXAM: CT LIVER WITHOUT AND WITH CONTRAST EXAM DATE: 05/02/2017 11:49 AM. CLINICAL HISTORY: LIVER CELL CARCINOMA. COMPARISONS: 02/05/2017. TECHNIQUE: Routine multiphase liver CT before and after the administration of IV contrast. IV contras t: 100ML OF ISOVUE 300. Enteric contrast: Yes. Reconstructions: Coronal and sagittal. In accordance with CT protocol optimization, one or more of the following dose reduction techniques w ere utilized for this exam: automated exposure control, adjustment of mA and/or KV based on patient s ize, or use of iterative reconstructive technique. FINDINGS: Lung Bases: Small to moderate pleural effusions, right more than left, with underlying atelectasis, i ncreased slightly since previous study. At least three-vessel coronary artery calcifications. Calcifi ed mediastinal lymph nodes. Liver: Nodular surface compatible with history of cirrhosis. Tiny cysts in anterior right lobe, uncha nged. No suspicious lesion. No ascites. Gallbladder/Biliary System: Normal. No ductal dilatation or visualized stones. Other Solid Organs: Unremarkable spleen, mildly atrophic pancreas, and adrenal glands. Bilateral margaret l cysts. No hydronephrosis. Also noted is a hypoattenuated nodule of the left kidney measuring about 17 mm in diameter, with initial density of 33, increasing to 38 with enhancement and persisting at 46 on delayed scans. This is similar to the previous study. Bowel: The visualized bowel loops are normal. No free air or lymphadenopathy. Bones: Normal. Other: None. IMPRESSION: 1. Evidence of cirrhosis, but no suspicious liver mass at this time. No ascites. 2. Small high density nodule of left kidney, unchanged, but suspicious for solid nodule. Ultrasound c orrelation is recommended. 3. Pleural effusions, right more than left, increased slightly since previous exam. 4. Other chronic or incidental findings. [facility] Referring Provider Line: [phone] SITE ID: [id number]
== END 2017-05-02 09:23 | disposition home or self-care (01) ==
LOC: LAB 09:22
PROVIDERS: ATTEND Physician Assistant
DX: K74.60 Unspecified cirrhosis of liver (principal); N28.9 Disorder of kidney and ureter, unspecified; J90 Pleural effusion, not elsewhere classified
CPT/HCPCS: 74170; 80053; Q9967; 36415

== ENCOUNTER 2018-01-21 11:10 | Outpatient (CLI) | payer MEDICARE, OTHER ==
[2018-01-21 12:34] LABS: BASOPHILS % (AUTO) 0.7 %; EOSINOPHILS # (AUTO) 0.1 10^3/uL (0.0-0.7); EOSINOPHILS % (AUTO) 1.4 %; HGB - HEMOGLOBIN 13.4 g/dL (14.0-18.0); LYMPHOCYTES # (AUTO) 0.7 10^3/uL (1.5-3.5); LYMPHOCYTES % (AUTO) 11.6 %; MEAN CORPUSCULAR HEMOGLOBIN 33.5 pg (27.0-31.0); MEAN CORPUSCULAR HGB CONC 34.4 g/dL (32.0-36.0); MEAN CORPUSCULAR VOLUME 97.2 fL (80.0-94.0); MEAN PLATELET VOLUME 7.7 fL (7.4-11.4); MONOCYTES # (AUTO) 0.8 10^3/uL (0.0-1.0); MONOCYTES % (AUTO) 12.4 %; NEUTROPHILS # (AUTO) 4.5 10^3/uL (1.5-6.6); NEUTROPHILS % (AUTO) 73.9 %; PLT - PLATELET COUNT 108 10^3/uL (130-450); RED CELL DISTRIBUTION WIDTH 16.5 % (12.0-15.0); WHITE BLOOD COUNT 6.1 x10^3/uL (4.8-10.8)
[2018-01-21 12:45] LABS: INR 1.2 (0.8-1.2); PT - PROTHROMBIN TIME 13.3 secs (9.9-12.6)
[2018-01-21 12:54] LABS: ALBUMIN 3.9 g/dL (3.2-5.5); ALBUMIN/GLOBULIN RATIO 0.9 (1.0-2.2); BILIRUBIN,TOTAL 2.3 mg/dL (0.2-1.0); CALCIUM 9.8 mg/dL (8.5-10.3); CREATININE 1.1 mg/dL (0.6-1.2); TOTAL PROTEIN 8.4 g/dL (6.7-8.2)
[2018-01-21] MEDS ORDERED: IOPAMIDOL-300 100 ML VIAL ONE (13:07)
--- NOTE | 2018-01-21 14:58 | CT Report ---
Reason: HEPATOCELLULAR CARCINOMA,LIVER LESION Procedure Date: 01/21/2018 Accession Number: [id number] / [id number] Procedure: CT - Abdomen W/WO CPT Code: FULL RESULT: EXAM: CT ABDOMEN WITHOUT AND WITH CONTRAST EXAM DATE: 01/21/2018 01:49 PM. HISTORY: Hepatocellular carcinoma, liver lesion. COMPARISON: Abdomen w/wo 05/02/2017 11:31 AM. TECHNIQUE: Routine helical CT imaging was performed through the abdomen before and after administration of IV contrast: Isovue 300 100 mL. Enteric contrast: No. Reconstruction: Coronal and sagittal. In accordance with CT protocol optimization, one or more of the following dose reduction techniques were utilized for this exam: automated exposure control, adjustment of mA and/or KV based on patient size, or use of iterative reconstructive technique. FINDINGS: Lung Bases: Persistent unilateral right pleural effusion. Liver: Apparent arterial hyperenhancement in the dome of the left lobe of the liver, segment 2 is felt to be volume averaging due to motion artifact. Otherwise, no suspicious liver lesion. Gallbladder/Bile Ducts: Unremarkable. Spleen: Normal. Pancreas: Normal. No masses or ductal obstruction. Adrenal Glands: Normal. Kidneys: Right kidney contains a simple cyst as well as a hyperdense cyst not characterized as simple. Left kidney contains a simple cyst, a hyperdense cyst as well as hypodensities too small to characterize. Peritoneal Cavity/Bowel: Normal. No free fluid, free air or adenopathy. No masses or acute inflammatory process. Vasculature: Extensive abdominal atherosclerosis. Bones: No aggressive osseous lesions. Other: None. IMPRESSION: No evidence of hepatocellular carcinoma. Recommend bilateral renal ultrasound to evaluate the hyperdense cysts and possibly characterize as simple. [facility]
[2018-01-21] MEDS ORDERED: IOPAMIDOL-300 100 ML VIAL IVP ONE (15:16)
== END 2018-01-21 11:11 | disposition home or self-care (01) ==
LOC: LAB 11:10
DX: C22.0 Liver cell carcinoma (principal); K76.9 Liver disease, unspecified; N28.1 Cyst of kidney, acquired
CPT/HCPCS: 36415; 74170; 80053; 82105; 85025; 85610; Q9967

== ENCOUNTER 2018-02-22 11:02 | Outpatient (CLI) | payer MEDICARE, OTHER ==
--- NOTE | 2018-02-22 13:41 | CT Report ---
Reason: ABNORMALITY OF ALPHAFETOPROTEIN Procedure Date: 02/22/2018 Accession Number: [id number] / [id number] Procedure: CT - Chest W/O CPT Code: FULL RESULT: EXAM: CT CHEST EXAM DATE: 02/22/2018 12:22 PM. CLINICAL HISTORY: Abnormality of alpha fetoprotein. COMPARISONS: CHEST 2 VIEW PA/LAT 12/26/2016 4:25 PM. TECHNIQUE: Routine helical CT imaging was performed through the chest. IV contrast: None. Reconstructions: Coronal and sagittal. In accordance with CT protocol optimization, one or more of the following dose reduction techniques were utilized for this exam: automated exposure control, adjustment of mA and/or KV based on patient size, or use of iterative reconstructive technique. FINDINGS: Lungs/Pleura: There is solitary apical segment of the left lower lobe consolidation with air bronchogram formation of 3 cm in size. There is a moderate-sized right pleural effusion, increased compared to the chest radiograph in 2017. There is associated compressive atelectasis/consolidation in the left lung. There is no pneumothorax. Mediastinum: Heavy calcifications of the coronary vasculature as well as the thoracic aorta. There is no mediastinal or hilar lymphadenopathy by size criteria. Bones: Unremarkable. Visualized Abdomen: Redemonstration of renal cysts previously described. Other: None. IMPRESSION: Moderate right pleural effusion with associated consolidation, which is felt to be compressive atelectasis. 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 Consolidation in the superior segment of the left lower lobe with air bronchogram formation. While this appearance is compatible with pneumonia, the discrete singular location and size mandate imaging follow-up to resolution in 6 months. If the patient is clinically entirely asymptomatic, consider biopsy at this time. RADIA
== END 2018-02-22 11:03 | disposition home or self-care (01) ==
LOC: DI 11:02
PROVIDERS: ATTEND Internal Medicine Gastroenterology
DX: J90 Pleural effusion, not elsewhere classified (principal); C22.0 Liver cell carcinoma; R77.2 Abnormality of alphafetoprotein
CPT/HCPCS: 71250

== ENCOUNTER 2018-04-10 14:33 | Observation (INO) | payer MEDICARE, OTHER ==
[2018-04-10] MEDS ORDERED: MORPHINE 10 MG/ML VIAL IVP STA (14:49)
--- NOTE | 2018-04-10 14:53 | ED Physician Documentation ---
PD HPI CHEST PAIN - Stated complaint Stated Complaint: CP/ABD PX - Chief complaint Chief Complaint: Cardiac - History obtained from History obtained from: Patient, Family () - History of Present Illness Timing - onset: Yesterday (This is an 78-year-old gentleman with history of atrial fibrillation, not currently on anticoagulation because he also has a history of hepatocellular carcinoma status post radiofrequency ablation and undergoing radiation therapy. Last year he had an episode where the hepatocarcinoma's spontaneously hemorrhaged and he developed hemoperitoneum. He was in shock at the time and transferred from [facility] to [facility] where he gets his tertiary care. Yesterday at lunchtime he suddenly developed epigastric and chest pain that was nonradiating and feeling a little weak and dizzy with it. It feels reminiscent to prior hepatocellular carcinoma hemorrhage. He denies shortness of breath with it.) Review of Systems Ten Systems: 10 systems reviewed and negative Constitutional: reports: Fatigue. denies: Fever, Chills Nose: denies: Rhinorrhea / runny nose, Congestion Cardiac: reports: Chest pain / pressure, Pedal edema. denies: Palpitations, Calf pain Respiratory: denies: Dyspnea, Cough PD PAST MEDICAL HISTORY - Past Medical History Cardiovascular: Hypertension, Angina, Atrial fibrillation, Arrhythmia Respiratory: None Endocrine/Autoimmune: Type 2 diabetes GI: None : None HEENT: None Psych: None Musculoskeletal: None Derm: None - Past Surgical History Past Surgical History: Yes General: Appendectomy, Colonoscopy Ortho: Shoulder arthroplasty Cardiovascular: Pacemaker, AICD HEENT: Tonsil/Adenoidectomy Derm: Skin cancer surgery - Present Medications Home Medications: Ambulatory Orders Medication Instructions Recorded Confirmed Allopurinol 100 mg PO BID 11/01/13 12/26/16 Lisinopril 10 mg PO TID 11/01/13 12/26/16 glipiZIDE [Glucotrol] 2.5 mg PO BID 11/01/13 12/26/16 Furosemide 30 mg PO DAILY 02/28/14 12/26/16 Metoprolol Tartrate 0.5 tab PO BID 04/10/18 04/10/18 - Allergies Allergies/Adverse Reactions: Allergies Allergy/AdvReac Type Severity Reaction Status Date / Time hydrocodone bitartrate * Allergy Severe Hallucinati Verified 04/10/18 14:48 [From [place]] ons quinine Allergy Severe Confusion Verified 04/10/18 14:48 - Social History Does the pt smoke?: No Smoking Status: Never smoker Does the pt drink ETOH?: No Does the pt have substance abuse?: No - Family History Family history: reports: Non contributory - Immunizations Immunizations are current?: Yes PD ED PE NORMAL - Vitals Vital signs reviewed: Yes (Tachycardic) - General General: Alert and oriented X 3, No acute distress - HEENT HEENT: PERRL, EOMI - Neck Neck: Supple, no meningeal sign, No bony TTP - Cardiac Cardiac: Other (Rapid and irregular without murmur) - Respiratory Respiratory: No respiratory distress, Clear bilaterally - Abdomen Abdomen: Other (Soft with mild upper abdominal tenderness. Bedside ultrasound does not show obvious free fluid.) - Back Back: No CVA TTP, No spinal TTP - Derm Derm: Normal color, Warm and dry - Extremities Extremities: Other (Trace pitting pedal edema.) - Neuro Neuro: Alert and oriented X 3, Normal speech Results - Vitals Vitals: Vital Signs - 24 hr 04/10/18 04/10/18 04/10/18 14:39 14:48 14:56 Temperature 36.5 C Heart Rate 145 H 145 H Respiratory 16 Rate Blood Pressure 137/87 H Blood Pressure 137/87 H [Left] O2 Saturation 96 04/10/18 04/10/18 16:06 16:12 Temperature Heart Rate 112 H 123 H Respiratory 17 14 Rate Blood Pressure 108/76 108/76 Blood Pressure [Left] O2 Saturation 95 96 Oxygen O2 Source Room air - EKG (time done) 1442 Rate: Rate (enter#) (130) Rhythm: Atrial fibrillation [place]: RAD Ischemia: Non specific changes (Lateral ST depression which is probably rate related, it is increased compared to EKG dated 12/17/2016. Note there is a more recent EKG on the chart but that was not used because he was paced at that time. I disagree with the computer is reading which says he has had an sinus tachycardia.) - Labs Labs: Laboratory Tests 04/10/18 04/10/18 04/10/18 14:45 14:45 14:45 WBC 5.5 RBC 3.90 L Hgb 13.5 L Hct 39.0 L MCV 100.1 H MCH 34.5 H MCHC 34.4 RDW 15.9 H Plt Count 102 L MPV 7.8 Neut # (Auto) 3.9 Lymph # (Auto) 0.7 L [place] # (Auto) 0.8 Eos # (Auto) 0.1 Baso # (Auto) 0.0 Absolute Nucleated RBC 0.00 Nucleated RBC % 0.0 PT 13.9 H INR 1.2 Sodium 134 L Potassium 3.3 L Chloride 100 L Carbon Dioxide 27 Anion Gap 7.0 BUN 25 H Creatinine 1.0 Estimated GFR (MDRD) 72 L Glucose 185 H Lactic Acid Calcium 9.1 Total Bilirubin 2.4 H AST 54 H ALT 42 Alkaline Phosphatase 166 H Total Creatine Kinase 43 CK-MB (CK-2) Troponin I Total Protein 8.0 Albumin 3.7 Globulin 4.3 H Albumin/Globulin Ratio 0.9 L Lipase 88 H Blood Type Antibody Screen 04/10/18 04/10/18 04/10/18 14:45 14:45 15:15 WBC RBC Hgb Hct MCV MCH MCHC RDW Plt Count MPV Neut # (Auto) Lymph # (Auto) [place] # (Auto) Eos # (Auto) Baso # (Auto) Absolute Nucleated RBC Nucleated RBC % PT INR Sodium Potassium Chloride Carbon Dioxide Anion Gap BUN Creatinine Estimated GFR (MDRD) Glucose Lactic Acid 1.4 Calcium Total Bilirubin AST ALT Alkaline Phosphatase Total Creatine Kinase CK-MB (CK-2) 2.8 Troponin I 0.04 Total Protein Albumin Globulin Albumin/Globulin Ratio Lipase Blood Type O POSITIVE Antibody Screen NEGATIVE - Rads (name of study) CT Chest Radiology: EMP read contemporaneously (1. There is cardiomegaly. There is aortic calcification. There are coronary artery calcifications. 2. There is a moderate to large right pleural effusion. 3. There is a small left pleural effusion. 4. There is a small focus of masslike density measuring 2.5 cm in diameter within the superior segment of the left lower lobe. 5. There are mildly enlarged mediastinal lymph nodes. 6. Findings within the abdomen and pelvis are detailed separately.) Ct Abd Radiology: EMP read contemporaneously (1. No evidence of intra-abdominal hemorrhage. 2. Findings within the chest are detailed separately. 3. There is a 5.1 x 4.0 cm heterogeneous mass emanating from the lateral aspect of the left hepatic lobe. 4. There is nodular hepatic contour likely reflective of cirrhosis. There is splenomegaly. 5. There are atheromatous calcifications of the aorta and branch vessels. There is linear hyperdensity within the distal aspect of the hepatic artery; this could represent coil material from embolization. Clinical corelation recommended. 6. There is a new fluid density focus within the pancreatic head. 7. There is mild right upper abdomen mesenteric fat stranding. Stranding is most pronounced within the faye hepatis region and at the duodenum. Differential considerations include duodenitis, ascites from liver disease, or stranding related to recent intervention. 8. There is a left inguinal hernia. There is a small amount of circumscribed fluid within the left hernia.) PD MEDICAL DECISION MAKING - ED course ED course: 78-year-old gentleman with active hepatocellular carcinoma presents with upper abdominal pain radiating to the chest of a days duration. He is in atrial fibrillation with rapid ventricular response. I held off treating this primarily given the concern initially for potential intra-abdominal hemorrhage given his history of same due to hepatocellular carcinoma but was treated with diltiazem after the results of radiology studies were done. 10 mill grams of diltiazem he was rate controlled but borderline hypotensive, 90/50 range. He felt about the same but the pain radiated up into the chest more after this. Radiology studies as shown, he has multiple abnormalities which require follow- up. A chronic right pleural effusion, left lower lobe mass which needs further workup. He has some fluid around the pancreatic head, but no corresponding elevation of the lipase and potential duodenitis as well as left inguinal hernia. He is a complicated patient and given the persistent chest pain we will place him in observation for a formal rule out. Spoke with Dr. Harmon for this at 4 PM. Departure - Departure Disposition: ED Place in Observation Clinical Impression: Atypical chest pain, Atrial fibrillation with RVR, HCC (hepatocellular carcinoma) A-fib Qualifiers: Atrial fibrillation type: chronic Qualified Code(s): I48.2 - Chronic atrial fibrillation Abdominal pain Qualifiers: Abdominal location: generalized Qualified Code(s): R10.84 - Generalized abdominal pain Condition: Stable
[2018-04-10] MEDS ORDERED: IOPAMIDOL-300 100 ML VIAL ONE (15:03)
[2018-04-10 15:08] LABS: BASOPHILS % (AUTO) 0.5 %; EOSINOPHILS # (AUTO) 0.1 10^3/uL (0.0-0.7); EOSINOPHILS % (AUTO) 1.4 %; HGB - HEMOGLOBIN 13.5 g/dL (14.0-18.0); LYMPHOCYTES # (AUTO) 0.7 10^3/uL (1.5-3.5); LYMPHOCYTES % (AUTO) 13.1 %; MEAN CORPUSCULAR HEMOGLOBIN 34.5 pg (27.0-31.0); MEAN CORPUSCULAR HGB CONC 34.4 g/dL (32.0-36.0); MEAN CORPUSCULAR VOLUME 100.1 fL (80.0-94.0); MEAN PLATELET VOLUME 7.8 fL (7.4-11.4); MONOCYTES # (AUTO) 0.8 10^3/uL (0.0-1.0); MONOCYTES % (AUTO) 14.6 %; NEUTROPHILS # (AUTO) 3.9 10^3/uL (1.5-6.6); NEUTROPHILS % (AUTO) 70.4 %; PLT - PLATELET COUNT 102 10^3/uL (130-450); RED CELL DISTRIBUTION WIDTH 15.9 % (12.0-15.0); WHITE BLOOD COUNT 5.5 x10^3/uL (4.8-10.8)
[2018-04-10 15:14] LABS: INR 1.2 (0.8-1.2); PT - PROTHROMBIN TIME 13.9 secs (9.9-12.6)
[2018-04-10 15:17] LABS: ALBUMIN 3.7 g/dL (3.2-5.5); ALBUMIN/GLOBULIN RATIO 0.9 (1.0-2.2); BILIRUBIN,TOTAL 2.4 mg/dL (0.2-1.0); CALCIUM 9.1 mg/dL (8.5-10.3)
[2018-04-10 15:22] LABS: TROPONIN I 0.04 ng/mL (<0.49)
[2018-04-10 15:24] LABS: CREATINE KINASE MB 2.8 ng/mL (0.6-6.3)
[2018-04-10] MEDS ORDERED: IOPAMIDOL-300 100 ML VIAL IVP ONE (15:42)
--- NOTE | 2018-04-10 16:04 | CT Report ---
Reason: chest/abd pain, HCC with H/O hemorrhage Procedure Date: 04/10/2018 Accession Number: [id number] / [id number] Procedure: CT - Chest W/ CPT Code: FULL RESULT: EXAM: CT CHEST EXAM DATE: 04/10/2018 03:32 PM. CLINICAL HISTORY: Chest and abdomen pain COMPARISONS: CHEST W/O 02/22/2018 12:24 PM. TECHNIQUE: Routine helical CT imaging was performed through the chest. IV contrast: None. Reconstructions: Coronal and sagittal. In accordance with CT protocol optimization, one or more of the following dose reduction techniques were utilized for this exam: automated exposure control, adjustment of mA and/or KV based on patient size, or use of iterative reconstructive technique. FINDINGS: Lungs/Pleura: There is a moderate to large right pleural effusion. There is associated right atelectasis. There is a small left pleural effusion. There is a 2.5 x 2.5 cm focus of masslike density within the superior segment of the left lower lobe. There is some linear density within the trachea which probably represents debris. There is no evidence of pneumothorax. Mediastinum: There is cardiomegaly. There is thoracic aortic calcification. There are no enlarged axillary or supraclavicular lymph nodes. There are enlarged mediastinal lymph nodes. Index examples include highest mediastinal 1.5 x 1.2 cm image 22, the right paratracheal 1.8 x 1.0 cm image 29, and subcarinal 2.3 x 1.5 cm image 34. These are comparable to the previous examination. Bones: Unremarkable. Visualized Abdomen: Findings are detailed separately. Other: None. IMPRESSION: 1. There is cardiomegaly. There is aortic calcification. There are coronary artery calcifications. 2. There is a moderate to large right pleural effusion. 3. There is a small left pleural effusion. 4. There is a small focus of masslike density measuring 2.5 cm in diameter within the superior segment of the left lower lobe. 5. There are mildly enlarged mediastinal lymph nodes. 6. Findings within the abdomen and pelvis are detailed separately. RADIA
[2018-04-10] MEDS ORDERED: diltiaZEM INJ 5 MG/ML VIAL IVP STA (16:05)
--- NOTE | 2018-04-10 16:19 | CT Report ---
Reason: chest/abd pain, HCC with H/O hemorrhage Procedure Date: 04/10/2018 Accession Number: [id number] / [id number] Procedure: CT - Abdomen/Pelvis W/ CPT Code: FULL RESULT: EXAM: CT ABDOMEN AND PELVIS EXAM DATE: 04/10/2018 03:32 PM. CLINICAL HISTORY: Abdominal pain COMPARISONS: CHEST W/O 02/22/2018 12:24 PM ABDOMEN W/WO 01/21/2018 1:23 PM. TECHNIQUE: Routine helical CT imaging was performed through the abdomen and pelvis. IV contrast: ISOVUE 300 100mL. Enteric contrast: No. Reconstructions: Coronal and sagittal. In accordance with CT protocol optimization, one or more of the following dose reduction techniques were utilized for this exam: automated exposure control, adjustment of mA and/or KV based on patient size, or use of iterative reconstructive technique. FINDINGS: Lung Bases: Findings are detailed separately. Liver: The left hepatic lobe. Liver demonstrates a nodular contour. There is a 5.1 x 4.0 cm heterogeneous mass emanating from the lateral aspect of left hepatic lobe. The liver demonstrates a nodular contour, likely underlying cirrhosis. Gallbladder/Bile Ducts: There is mild pericholecystic edema. No evidence of significant bile duct dilatation. Spleen: There is splenomegaly. Pancreas: There is a 1.5 x 1.9 cm fluid density focus within the pancreatic head. This is new since the previous CT examination. Adrenal Glands: Normal. Kidneys: There are bilateral renal cortical hypodensities which probably represent cysts. No stones or hydronephrosis. Peritoneal Cavity/Bowel: Stomach, small bowel, and colon demonstrate no acute abnormalities. There are scattered sigmoid colon diverticula. There is no evidence of diverticulitis. There is fat stranding and fluid within the faye hepatis region. There is a small amount of free fluid within the pelvis. No intraperitoneal free air. No clearly enlarged mesenteric or retroperitoneal lymph nodes. No evidence of appendicitis. Pelvic Organs: There is bowel within the upper aspect of the patient's left inguinal hernia. There is a small fluid collection within left inguinal canal. The urinary bladder demonstrates no acute abnormalities. No enlarged pelvic lymph nodes. Vasculature: There are atheromatous calcifications of the aorta and branch vessels. There is linear hyperdensity at the distal aspect of the hepatic artery. This could represent coil material. Hypodensity within distal branches of the superior mesenteric vein is probably artifact secondary to timing of contrast bolus. Bones: No acute bony abnormalities are seen. Other: None. IMPRESSION: 1. No evidence of intra-abdominal hemorrhage. 2. Findings within the chest are detailed separately. 3. There is a 5.1 x 4.0 cm heterogeneous mass emanating from the lateral aspect of the left hepatic lobe. 4. There is nodular hepatic contour likely reflective of cirrhosis. There is splenomegaly. 5. There are atheromatous calcifications of the aorta and branch vessels. There is linear hyperdensity within the distal aspect of the hepatic artery; this could represent coil material from embolization. Clinical correlation recommended. 6. There is a new fluid density focus within the pancreatic head. 7. There is mild right upper abdomen mesenteric fat stranding. Stranding is most pronounced within the faye hepatis region and at the duodenum. Differential considerations include duodenitis, ascites from liver disease, or stranding related to recent intervention. 8. There is a left inguinal hernia. There is a small amount of circumscribed fluid within the left hernia. RADIA
[2018-04-10] MEDS ORDERED: ACETAMINOPHEN 325 MG TABLET PO PRN (17:48)
[2018-04-10] MEDS ORDERED: SODIUM CHLORIDE FLUSH 0.9% 10 ML SYRINGE IVP PRN (17:48)
[2018-04-10] MEDS ORDERED: ONDANSETRON 4 MG/2 ML VIAL IVP PRN (17:48)
[2018-04-10] MEDS ORDERED: MORPHINE 2 MG/ML CARPUJECT IVP PRN (17:54)
[2018-04-10] MEDS ORDERED: NITROGLYCERIN SL 0.4 MG TABLET SL PRN (17:54)
[2018-04-10] MEDS ORDERED: POTASSIUM CHLORIDE 20 MEQ TABLET PO SCH (18:03)
--- NOTE | 2018-04-10 18:04 | HISTORY & PHYSICAL EXAMINATION ---
Chief Complaint - Chief Complaint Chief Complaint: chest pain History of Present Illness - History of Present Illness HPI Comment/Other: 78-year-old gentleman with history of atrial fibrillation not currently on anticoagulation, active hepatocellular carcinoma under care by , a chronic right pleural effusion, left lower lobe mass, HTN, and DM2, who present ER complains of chest pain. because he also has a history of hepatocellular carcinoma status post radiofrequency ablation and undergoing radiation therapy. At lunchtime of Yesterday pt suddenly developed epigastric and middle of chest pain which was nonradiating to the other locations. Pt report chest pain was dull at pain scale 2/10. He also felt a little weak and dizzy. He denies diaph oresis or shortness of breath associated with his chest pain. he did report he took three times of Nitro but could not help his chest pain. He report his upper abdominal pain first then he develop chest pain at his middle of his chest. Pt report on last year he had an episode where the hepatocarcinoma's spontaneously hemorrhaged While he took his Coumadin and he developed hemoperitoneum. He was in shock at that time and was transferred from [facility] to [facility] where he gets his tertiary care. In ER report, He is in atrial fibrillation with rapid ventricular response. Pt was given10 mill grams of diltiazem he was rate controlled but borderline hypotensive, 90/50 range. Pt has elevated total bilirubin and liver enzyme. Pt has CT of abdomen/pelvis and chest in ER. I discussed with all findings in these images. pt state there is no new finding for him, he understand all these findings in the previous. initially troponin is negative. EKG reveals afib with RVR. Pt is admitted for chest pain. Pt hope he can be d/c early as possible, because he state he has appointment on tomorrow in for his cancer treatment. History - Past Medical History Cardiovascular: reports: Hypertension, Angina, Atrial fibrillation, Arrhythmia Respiratory: reports: None Endocrine/Autoimmune: reports: Type 2 diabetes GI: reports: None : reports: None HEENT: reports: None Psych: reports: None Musculoskeletal: reports: None Derm: reports: None MRSA Hx?: No - Past Surgical History General: reports: Appendectomy, Colonoscopy Ortho: reports: Shoulder arthroplasty Cardiovascular: reports: Pacemaker, AICD HEENT: reports: Tonsil/Adenoidectomy Derm: reports: Skin cancer surgery - POLST Patient has POLST: No Meds/Allgy - Home Medications Home Medications: Ambulatory Orders Medication Instructions Recorded Confirmed Allopurinol 200 mg PO DAILY 11/01/13 04/11/18 Lisinopril 5 mg PO DAILY 11/01/13 04/11/18 glipiZIDE [Glucotrol] 2.5 mg PO DAILY 11/01/13 04/11/18 Metoprolol Tartrate 25 mg PO BID 04/10/18 04/11/18 Furosemide [Lasix] 30 mg PO DAILY 04/11/18 04/11/18 Nitroglycerin [Nitrostat] 0.4 mg SL Q5MIN PRN 04/11/18 04/11/18 SITagliptin [Januvia] 50 mg PO DAILY 04/11/18 04/11/18 - Allergies Allergies/Adverse Reactions: Allergies Allergy/AdvReac Type Severity Reaction Status Date / Time hydrocodone bitartrate * Allergy Severe Hallucinati Verified 04/10/18 14:48 [From [place]] ons quinine Allergy Severe Confusion Verified 04/10/18 14:48 Review of Systems - Constitutional Constitutional: denies: Fatigue, Fever, Chills, Malaise, Weakness, Poor appetite, Diaphoresis, Night sweats - Eyes Eyes: denies: Pain, Irritation, Amaurosis, Blurred vision, Spots in vision, Field loss, Vision loss, Dipolpia - Ears, Nose & Throat Ears, Nose & Throat: denies: Ear pain, Hearing loss, Hearing aids, Tinnitus, Vertigo, Nasal pain, Nasal discharge, Nosebleeds, Nasal obstruction, Postnasal drainage, Dentures, Sore throat, Hoarseness, Mouth lesions, Bleeding gums, Dental decay - Cardiovascular Cariovascular: reports: Chest pain. denies: Irregular heart rate, Palpitations, Edema, Lightheadedness, Syncope, Exertional dyspnea, Decr. exercise tolerance - Respiratory Respiratory: denies: Cough, Sputum production, Wheezing, Snoring, Hemoptysis, Orthopnea, SOB at rest, SOB with exertion - Gastrointestinal Gastrointestinal: reports: Abdominal pain. denies: Abdominal distention, Constipation, Diarrhea, Change in bowel habits, Rectal bleeding, Black stools, Bloody stools, Nausea, Vomiting, Bile emesis, Kody blood emesis, Bloating - Genitourinary Genitourinary: denies: Dysuria, Frequency, Urgency, Hematuria, Incontinence, Flank pain, Nocturia, Urethral discharge - Musculoskeletal Musculoskeletal: denies: Muscle pain, Back pain, Muscle aches, Stiffness, Limited range of motion, Muscle weakness, Gout, Joint pain - Integumentary Integumentary: denies: Rash, Pruritis, Lesions, Dryness, Lumps, Acne, Pigment changes, Nail changes - Neurological Neurological: denies: General weakness, Focal weakness, Headache, Dizziness, Numbness, Memory problems, Pre-existing deficit, Abnormal gait - Psychiatric Psychiatric: denies: Depression, Anxiety, Suicidal, Delusions, Hallucinations, Homicidal - Endocrine Endocrine: denies: Polyuria, Polydypsia, Polyphagia, Intolerance to cold - Hematologic/Lymphatic Hematologic/Lymphatic: denies: Anemia, Bruising, Petechiae, Blood clots, Lymphadenopathy, Bleeding tendencies Exam - Vital Signs Reviewed Vital Signs: Yes Vital Signs: Vital Signs x48h Temp Pulse Resp BP BP Pulse Ox 04/10/18 17:25 83 19 93/59 L 94 04/10/18 16:57 67 18 95/64 96 04/10/18 16:12 123 H 14 108/76 96 04/10/18 16:06 112 H 17 108/76 95 04/10/18 14:56 137/87 H 04/10/18 14:48 145 H 04/10/18 14:39 36.5 C 145 H 16 137/87 H 96 - Physical Exam General Appearance: positive: No acute distress, Alert. negative: Lethargic Eyes Bilateral: positive: Normal inspection, PERRL, No lid inflammation, Conjunctivae nml ENT: positive: ENT inspection nml, Pharynx nml, No signs of dehydration. negative: Purulent nasal drainage, Pharyngeal erythema, Oral lesions Neck: positive: Nml inspection, Thyroid nml, No JVD, Trachea midline. negative: Thyromegaly, Lymphadenopathy (R), Lymphadenopathy (L), Stiff neck, Swelling/bruising, Tracheal deviation Respiratory: positive: Chest non-tender, No respiratory distress, Breath sounds nml. negative: Wheezes, Rales, Rhonchi Cardiovascular: positive: Regular rate & rhythm, No murmur, No gallop. negative: Irregularly irregular, Extrasystoles, Tachycardia, Bradycardia, JVD present, Systolic murmur, Diastolic murmur Peripheral Pulses: positive: 2+ Abdomen: positive: Non-tender, No organomegaly, Nml bowel sounds, No distention. negative: Tenderness, Guarding, Rebound Back: positive: Nml inspection. negative: CVA tenderness (R), CVA tenderness (L) Skin: positive: Color nml, No rash, Warm, Dry. negative: Cyanosis, Diaphoresis, Pallor Extremities: positive: Non-tender, Full ROM, Nml appearance. negative: Calf tenderness, Joint swelling, Guillermo's sign/cords Neurologic/Psychiatric: positive: Oriented x3, Motor nml, Sensation nml, Mood/affect nml. negative: Weakness, Sensory loss, Facial droop, Slurred/abnml speech, Depressed mood/affect Sepsis Event Note (H) - Evaluation Current Stage of Sepsis: Ruled out Conclusion/Plan - Problem List (1) Chest pain Conclusion/Plan: according to pt's clinic presentation, initially troponin, and EKG, it may indic ate atypical chest pain will finish troponin serial EKG PRN ECHO tele and vital monitor nitro and Morphin PRN O2 supplement as needed (2) Atrial fibrillation with RVR Conclusion/Plan: HR is around 90 after IV of Cardizem at ER, but also present hypotensive tele and vital monitor add PO cardizem CP if continue RVR resume home beta-shaina if BP is allowed to do (3) Hypotension Conclusion/Plan: pt's BP is low at ER, unknown etiology, will hold home BP meds vital monitor slight hydration as possible after pt has ECHO study Qualifiers: Hypotension type: unspecified hypotension type Qualified Code(s): I95.9 - Hypotension, unspecified (4) HCC (hepatocellular carcinoma) Conclusion/Plan: advise pt follow up his oncologist as out-pt closely as possible (5) Lung mass Conclusion/Plan: as pt state, it is not new for him. advise pt closely followup and discuss with his oncologist (6) Pleural effusion associated with hepatic disorder Conclusion/Plan: stable, pt did not present shortness of breath. pt state he knew it is his chronic medical issue advise pt discuss with his oncologist as well vital monitor in hospital (8) Do not intubate, cardiopulmonary resuscitation (CPR)-only code status Conclusion/Plan: pt clearly request DNR only code for his - Lab Results Fish Bones: 04/11/18 06:15 04/11/18 06:15 Core Measures - Anticipated LOS I expect patient to be DC'd or transferred within 96 hours.: Yes - DVT/VTE - Prophylaxis VTE/DVT Device ordered at admit?: Yes
[2018-04-10] MEDS: FAMOTIDINE 20 MG TABLET PO SCH (20:20)
[2018-04-10] MEDS: INSULIN ASPART 300 UNIT/3 ML PEN SUBQ SCH (20:22)
[2018-04-10 21:16] LABS: HB2 TOTAL 14.4 g/dL; HEMOGLOBIN A1C 0.55 g/dL; HEMOGLOBIN A1C % 5.6 % (4.6-6.2)
[2018-04-11] MEDS: SODIUM CHLORIDE FLUSH 0.9% 10 ML SYRINGE IVP SCH ×2 (02:04→08:44)
[2018-04-11 06:44] LABS: BASOPHILS % (AUTO) 0.9 %; EOSINOPHILS # (AUTO) 0.1 10^3/uL (0.0-0.7); EOSINOPHILS % (AUTO) 1.9 %; HGB - HEMOGLOBIN 12.8 g/dL (14.0-18.0); LYMPHOCYTES # (AUTO) 0.7 10^3/uL (1.5-3.5); MEAN CORPUSCULAR HGB CONC 33.5 g/dL (32.0-36.0); MEAN CORPUSCULAR VOLUME 101.4 fL (80.0-94.0); MEAN PLATELET VOLUME 7.8 fL (7.4-11.4); MONOCYTES # (AUTO) 0.7 10^3/uL (0.0-1.0); MONOCYTES % (AUTO) 13.7 %; NEUTROPHILS # (AUTO) 3.6 10^3/uL (1.5-6.6); NEUTROPHILS % (AUTO) 69.5 %; PLT - PLATELET COUNT 99 10^3/uL (130-450); RED BLOOD COUNT 3.78 10^6/uL (4.70-6.10); RED CELL DISTRIBUTION WIDTH 16.2 % (12.0-15.0); WHITE BLOOD COUNT 5.2 x10^3/uL (4.8-10.8)
[2018-04-11 07:03] LABS: ALBUMIN 3.1 g/dL (3.2-5.5); ALBUMIN/GLOBULIN RATIO 0.8 (1.0-2.2); BILIRUBIN,TOTAL 2.4 mg/dL (0.2-1.0); CALCIUM 9.2 mg/dL (8.5-10.3); CREATININE 0.8 mg/dL (0.6-1.2); MAGNESIUM 1.9 mg/dL (1.7-2.8); TOTAL PROTEIN 6.8 g/dL (6.7-8.2)
[2018-04-11] MEDS: INSULIN ASPART 300 UNIT/3 ML PEN SUBQ SCH ×2 (07:31→12:31)
[2018-04-11] MEDS: FAMOTIDINE 20 MG TABLET PO SCH (08:44)
[2018-04-11] MEDS ORDERED: NITROGLYCERIN SL 0.4 MG TABLET SL PRN (08:54)
[2018-04-11] MEDS ORDERED: METOPROLOL TARTRATE 50 MG TABLET PO SCH (09:00)
[2018-04-11] MEDS ORDERED: GABAPENTIN 300 MG CAPSULE PO SCH (09:00)
[2018-04-11] MEDS ORDERED: POLYETHYLENE GLYCOL 3350 17 GM PACKET PO SCH (09:00)
[2018-04-11] MEDS ORDERED: METOPROLOL TARTRATE 25 MG TABLET PO SCH (10:00)
[2018-04-11] MEDS ORDERED: diltiaZEM CD 120 MG CAPSULE PO SCH (12:00)
--- NOTE | 2018-04-11 15:26 | Discharge Plan ---
Discharge Plan Disposition: Home, Self Care Condition: Poor Prescriptions: diltiaZEM CD [Cardizem Cd] 120 mg PO DAILY #10 capsule Diet: Diabetic Activity Restrictions: Activity as Tolerated Shower Restrictions: No (fall precaution, caregiver closely monitor) Instruction Topics: ED Chest Pain Atypical Unkn Cause, Atrial Fibrillation, Diltiazem tablets Additional Instructions or Follow Up instructions: You may followup your PCP in 2-4 days, follow up your cash specialist in one week, follow up your oncologist's appointment on schedule. After you have treatment in hospital, you did not have more chest pain. Serial Troponin test are negative. EF of ECHO indicate 30%. You also present A-Fib with RVR, Cardizem is prescribed for you to control your heart rate. Advise you followup your cash specialist very closely. Should your symptoms return or worsen, you may present ER or call 911 for help. No Smoking: If you smoke, Please STOP! Call for help. Follow-up with: Fabian Davis MD [Primary Care Provider] -
--- NOTE | 2018-04-11 15:39 | DISCHARGE SUMMARY ---
Discharge Summary Discharge Date: 04/11/18 Discharging Provider: BARRERA Primary Care Provider: Dr. Davis Condition at Discharge: Poor Discharge Disposition: 01 Home, Self Care Discharge Facility Name: home - DIAGNOSES Admission Diagnoses: (1) Chest pain (2) Atrial fibrillation with RVR (3) Hypotension (4) HCC (hepatocellular carcinoma) (5) Lung mass (6) Pleural effusion associated with hepatic disorder Discharge Diagnoses with Status of Each Condition: (1) Chest pain resolved. pt state he did not have more chest pain. serial troponin are stable, negative,and less or equal than 0.04. ECHO reveals pt has EF 30-35%. Pt had ICD. Pt state he had city letter carrier and will see him next week. pt state he knew he has low function of his heart, and followup his city letter carrier. Pt state he had his oncologist appointment at on tomorrow Thursday he has to followup, and request me to d/c him today since he did not have more chest pain. he is happy to be d/c. (2) Atrial fibrillation with RVR Pt denies palpitation, dizziness, chest pain, diaphoresis. He is asymptomatic. His BP is 109/65. Pt's HR is controlled on 55 on d/c vital. pt is prescribed Cardizem CD 120mg daily, and follow up his city letter carrier to continue management. (3) Hypotension stable. his BP is 109/65 at D/C (4) HCC (hepatocellular carcinoma) stable, no bleeding. CT of abdomen reveals 5.1X4 cm liver mass. This is not new finding. pt report he knew this, and follow up his oncologist in on coming Thursday. (5) Lung mass CT of lung reveals 2.5 masslike at his left lung, moderate to large right pleural effusion. Pt state he knew he has lung mass and chronic right pleural effusion. Pt did not present shortness of breath, cough, fever, chill. Pt state he will see his oncologist on tomorrow and continue to talk his oncologist and manage for. (6) Pleural effusion associated with hepatic disorder pt knew he has chronic right pleural effusion. Pt did not present shortness of breath, cough, fever, chill. Pt state he will see his oncologist on tomorrow and continue to talk his oncologist and manage for. - HPI History of Present Illness: 78-year-old gentleman with history of atrial fibrillation not currently on anticoagulation, active hepatocellular carcinoma under care by , a chronic right pleural effusion, left lower lobe mass, HTN, and DM2, who present ER complains of chest pain. because he also has a history of hepatocellular carcinoma status post radiofrequency ablation and undergoing radiation therapy. At lunchtime of Yesterday pt suddenly developed epigastric and middle of chest pain which was nonradiating to the other locations. Pt report chest pain was dull at pain scale 2/10. He also felt a little weak and dizzy. He denies d iaphoresis or shortness of breath associated with his chest pain. he did report he took three times of Nitro but could not help his chest pain. He report his upper abdominal pain first then he develop chest pain at his middle of his chest. Pt report on last year he had an episode where the hepatocarcinoma's spontaneously hemorrhaged While he took his Coumadin and he developed hemoperitoneum. He was in shock at that time and was transferred from [facility] to [facility] where he gets his tertiary care. In ER report, He is in atrial fibrillation with rapid ventricular response. Pt was given10 mill grams of diltiazem he was rate controlled but borderline hypotensive, 90/50 range. Pt has elevated total bilirubin and liver enzyme. Pt has CT of abdomen/pelvis and chest in ER. I discussed with all findings in these images. pt state there is no new finding for him, he understand all these findings in the previous. initially troponin is negative. EKG reveals afib with RVR. Pt is admitted for chest pain. Pt hope he can be d/c early as possible, because he state he has appointment on tomorrow in for his cancer treatment. - HOSPITAL COURSE Hospital Course: Pt was admitted for chest pain. He report his upper abdominal pain first then he develop chest pain at his middle of his chest. three serial troponin test are negative. EKG reveals Afib with RVR. ECHO reveals his EF 30-35%, has severe tricuspid/mitral regurgitation. Discuss with pt about his heart condition. pt knew this is not new finding to him, he state he will followup his city letter carrier on next week. Pt report he does not have any chest pain after overnight in hospital. pt request to be d/c to home today, because he state he has appointment on tomorrow in [facility] for his oncologist. Pt was treated with Cardizem for his Afib RVR. pt denies any palpitation, dizziness, shortness of breath. pt's HR is controlled on 55 at his discharge. Pt will follow up his city letter carrier to continue manage his cardiac medical problems. - ALLERGIES Allergies/Adverse Reactions: Allergies Allergy/AdvReac Type Severity Reaction Status Date / Time hydrocodone bitartrate * Allergy Severe Hallucinati Verified 04/10/18 14:48 [From [place]] ons quinine Allergy Severe Confusion Verified 04/10/18 14:48 - MEDICATIONS Home Medications: Ambulatory Orders Medication Instructions Recorded Confirmed Allopurinol 200 mg PO DAILY 11/01/13 04/11/18 Lisinopril 5 mg PO DAILY 11/01/13 04/11/18 glipiZIDE [Glucotrol] 2.5 mg PO DAILY 11/01/13 04/11/18 Metoprolol Tartrate 25 mg PO BID 04/10/18 04/11/18 Furosemide [Lasix] 30 mg PO DAILY 04/11/18 04/11/18 Nitroglycerin [Nitrostat] 0.4 mg SL Q5MIN PRN 04/11/18 04/11/18 SITagliptin [Januvia] 50 mg PO DAILY 04/11/18 04/11/18 diltiaZEM CD [Cardizem Cd] 120 mg PO DAILY #10 capsule 04/11/18 - PHYSICAL EXAM AT DISCHARGE General Appearance: positive: No acute distress, Alert. negative: Lethargic Eyes Bilateral: positive: Normal inspection, PERRL, No lid inflammation, C onjunctivae nml ENT: positive: ENT inspection nml, Pharynx nml, No signs of dehydration. negative: Purulent nasal drainage, Pharyngeal erythema, Oral lesions Neck: positive: Nml inspection, Thyroid nml, No JVD, Trachea midline. negative: Thyromegaly, Lymphadenopathy (R), Lymphadenopathy (L), Stiff neck, Swelling/bruising, Tracheal deviation Respiratory: positive: Chest non-tender, No respiratory distress. negative: Whe ezes, Rales, Rhonchi Cardiovascular: positive: Irregularly irregular, Systolic murmur, Diastolic murmur. negative: Extrasystoles, Tachycardia, Bradycardia Peripheral Pulses: positive: 2+ Abdomen: positive: Non-tender, Nml bowel sounds, No distention. negative: Tenderness, Guarding, Rebound Back: positive: Nml inspection. negative: CVA tenderness (R), CVA tenderness (L) Skin: positive: Color nml, No rash, Warm, Dry. negative: Cyanosis, Diaphoresis, Pallor Extremities: positive: Non-tender, Full ROM, Nml appearance. negative: Calf tenderness, Joint swelling, Guillermo's sign/cords Neurologic/Psychiatric: positive: Oriented x3, Motor nml, Sensation nml, Mood/affect nml. negative: Weakness, Sensory loss, Facial droop, Slurred/abnml speech, Depressed mood/affect - LABS Result Diagrams: 04/11/18 06:15 04/11/18 06:15 - SEPSIS Current Stage of Sepsis: Ruled out - FOLLOW UP Follow Up: You may followup your PCP in 2-4 days, follow up your city letter carrier in one week, follow up your oncologist's appointment on schedule. After you have treatment in hospital, you did not have more chest pain. Serial Troponin test are negative. EF of ECHO indicate 30%. You also present A-Fib with RVR, Cardizem is prescribed for you to control your heart rate. Advise you followup your city letter carrier very closely. Should your symptoms return or worsen, you may present ER or call 911 for help. - TIME SPENT Time Spent in Discharge (Minutes): 55
[2018-04-11 15:50] VITALS: BP 109/65
== END 2018-04-11 15:54 | disposition home or self-care (01) ==
LOC: ED 14:33 → MS2 17:49 → OBS 04-11 11:24
PROVIDERS: ADMIT Nurse Practitioner Gerontology; ATTEND Nurse Practitioner Gerontology
DX: R07.9 Chest pain, unspecified (principal); I48.2 Chronic atrial fibrillation; I95.9 Hypotension, unspecified; C22.0 Liver cell carcinoma; J91.8 Pleural effusion in other conditions classified elsewhere; R91.8 Other nonspecific abnormal finding of lung field; I10 Essential (primary) hypertension; Z66 Do not resuscitate; E11.9 Type 2 diabetes mellitus without complications; Z95.810 Presence of automatic (implantable) cardiac defibrillator; Z95.0 Presence of cardiac pacemaker; Z92.3 Personal history of irradiation
CPT/HCPCS: 36415; 71260; 74177; 80053; 82550; 82553; 83036; 83605; 83690; 83735; 84484; 85025; 85610; 86850; 86900; 86901; 96374; 96375; 99284; 99285; A9270; G0378; Q9967

== ENCOUNTER 2018-07-14 08:00 | Outpatient (CLI) | payer MEDICARE, OTHER ==
[2018-07-14 19:33] LABS: BASOPHILS # (AUTO) 0.1 10^3/uL (0.0-0.1); BASOPHILS % (AUTO) 1.3 %; EOSINOPHILS # (AUTO) 0.1 10^3/uL (0.0-0.7); EOSINOPHILS % (AUTO) 1.9 %; HGB - HEMOGLOBIN 12.3 g/dL (14.0-18.0); LYMPHOCYTES # (AUTO) 0.6 10^3/uL (1.5-3.5); LYMPHOCYTES % (AUTO) 10.4 %; MEAN CORPUSCULAR HEMOGLOBIN 34.4 pg (27.0-31.0); MEAN CORPUSCULAR HGB CONC 33.5 g/dL (32.0-36.0); MEAN CORPUSCULAR VOLUME 102.8 fL (80.0-94.0); MEAN PLATELET VOLUME 7.9 fL (7.4-11.4); MONOCYTES # (AUTO) 0.7 10^3/uL (0.0-1.0); MONOCYTES % (AUTO) 12.4 %; NEUTROPHILS # (AUTO) 4.5 10^3/uL (1.5-6.6); PLT - PLATELET COUNT 134 10^3/uL (130-450); RED BLOOD COUNT 3.57 10^6/uL (4.70-6.10); RED CELL DISTRIBUTION WIDTH 17.1 % (12.0-15.0)
[2018-07-14 19:58] LABS: HEMOGLOBIN A1C 0.62 g/dL; HEMOGLOBIN A1C % 6.5 % (4.6-6.2)
[2018-07-14 20:18] LABS: ALBUMIN 3.2 g/dL (3.2-5.5); ALBUMIN/GLOBULIN RATIO 0.8 (1.0-2.2); ALKALINE PHOSPHATASE 162 IU/L (42-121); ALT ALANINE AMINOTRANSFERASE 126 IU/L (10-60); AST ASPARTATE AMINOTRANSFERASE 118 IU/L (10-42); BILIRUBIN,TOTAL 1.7 mg/dL (0.2-1.0); BUN - BLOOD UREA NITROGEN 29 mg/dL (6-20); CALCIUM 9.2 mg/dL (8.5-10.3); CARBON DIOXIDE - CO2 27 mmol/L (21-32); CHLORIDE 98 mmol/L (101-111); CHOLESTEROL 127 mg/dL; GFR - MDRD 72 (>89); GLUCOSE 115 mg/dL (70-100); SODIUM 134 mmol/L (135-145); TOTAL PROTEIN 7.4 g/dL (6.7-8.2)
== END 2018-07-14 23:59 | disposition home or self-care (01) ==
LOC: LAB.WCP 08:00
PROVIDERS: ATTEND Family Medicine
DX: E11.40 Type 2 diabetes mellitus with diabetic neuropathy, unspecified (principal); E78.5 Hyperlipidemia, unspecified
CPT/HCPCS: 36415; 80053; 82465; 83036; 84443; 85025

== ENCOUNTER 2018-07-16 10:39 | Outpatient (CLI) | payer MEDICARE, OTHER ==
[2018-07-16] MEDS ORDERED: IOVERSOL 320 100 ML VIAL IVP ONE ×2 (11:40→11:54)
--- NOTE | 2018-07-16 14:45 | CT Report ---
Reason: LIVER MASS Procedure Date: 07/16/2018 Accession Number: [id number] / [id number] Procedure: CT - ABDOMEN W/WO CPT Code: FULL RESULT: EXAM: CT ABDOMEN WITHOUT AND WITH CONTRAST EXAM DATE: 07/16/2018 12:04 PM. HISTORY: Liver mass. COMPARISON: 01/21/2018. 04/10/2018. TECHNIQUE: Routine helical CT imaging was performed through the abdomen before and after administration of IV contrast: Optiray 320, 90 mL. Arterial, hepatic, delayed and noncontrast phases were obtained. Enteric contrast: No. Reconstruction: Coronal and sagittal. In accordance with CT protocol optimization, one or more of the following dose reduction techniques were utilized for this exam: automated exposure control, adjustment of mA and/or KV based on patient size, or use of iterative reconstructive technique. FINDINGS: Lung Bases: At least moderate right and trace left pleural effusions. Cardiomegaly with marked coronary calcifications. Arterial phase demonstrates reflux of contrast into the hepatic veins, heart failure. Liver: There is new geographic hypodensity and hypoenhancement medially along segment 2, image 23 series 6 and image 20 series 4, which appears most compatible with fatty infiltration. Separately the exophytic mass with 1.7 x 1.5 cm central hypodensity arising from the lateral aspect of segment 2 now measures 7.5 x 5.0 cm on image 21 series 6 and demonstrates venous hyperenhancement with washout relative to liver background on the delayed phase and no arterial enhancement, enhancement pattern is similar but not identical to blood pool. Gallbladder/Bile Ducts: Cholelithiasis. Spleen: Splenomegaly. Pancreas: The cystic pancreatic head lesion has enlarged and now measures 6.4 x 6.8 x 7.1 cm on image 40 and image 20 coronally respectively (AP by T by CC). There is upstream dilation of the pancreatic duct of up to 4 mm, image 33. Adrenal Glands: Normal. Kidneys: Kidneys demonstrate bilateral cysts, some of which are simple and others of which are hemorrhagic, as well as tiny renal hypodensities which are too small to characterize. Peritoneal Cavity/Bowel: No free fluid, free air or bowel obstruction. A few retroperitoneal lymph nodes do not meet size criteria. Vasculature: Atherosclerotic without definite aneurysm formation, status post coiling of the GDA. Bones: Qualitatively osteopenic. Other: None. IMPRESSION: Enlargement of cystic pancreatic lesion now up to 7.1 cm and causes dilation of the pancreatic duct as described. Enlargement of the segment 2 hepatic lesion which now measures up to 7.5 cm. Heart failure and right pleural effusion. Recommendation: Correlation to tumor markers and symptoms to guide tissue sampling. [facility]
== END 2018-07-16 10:40 | disposition home or self-care (01) ==
LOC: DI 10:39
PROVIDERS: ATTEND Nurse Practitioner
DX: R16.0 Hepatomegaly, not elsewhere classified (principal); K86.89 Other specified diseases of pancreas; I50.9 Heart failure, unspecified; J90 Pleural effusion, not elsewhere classified
CPT/HCPCS: 74170; Q9967

== ENCOUNTER 2018-07-21 13:33 | Outpatient (CLI) | payer MEDICARE, OTHER ==
[2018-07-21 19:10] LABS: BASOPHILS # (AUTO) 0.1 10^3/uL (0.0-0.1); BASOPHILS % (AUTO) 1.1 %; EOSINOPHILS # (AUTO) 0.1 10^3/uL (0.0-0.7); EOSINOPHILS % (AUTO) 1.9 %; HGB - HEMOGLOBIN 12.4 g/dL (14.0-18.0); LYMPHOCYTES # (AUTO) 0.7 10^3/uL (1.5-3.5); LYMPHOCYTES % (AUTO) 11.9 %; MEAN CORPUSCULAR HEMOGLOBIN 34.4 pg (27.0-31.0); MEAN CORPUSCULAR HGB CONC 33.2 g/dL (32.0-36.0); MEAN CORPUSCULAR VOLUME 103.6 fL (80.0-94.0); MEAN PLATELET VOLUME 8.1 fL (7.4-11.4); MONOCYTES # (AUTO) 0.8 10^3/uL (0.0-1.0); MONOCYTES % (AUTO) 12.5 %; NEUTROPHILS # (AUTO) 4.5 10^3/uL (1.5-6.6); NEUTROPHILS % (AUTO) 72.6 %; PLT - PLATELET COUNT 120 10^3/uL (130-450); RED BLOOD COUNT 3.61 10^6/uL (4.70-6.10); RED CELL DISTRIBUTION WIDTH 17.4 % (12.0-15.0); WHITE BLOOD COUNT 6.3 x10^3/uL (4.8-10.8)
== END 2018-07-21 13:34 | disposition home or self-care (01) ==
LOC: LAB.WCP 13:33
PROVIDERS: ATTEND Family Medicine
DX: C22.0 Liver cell carcinoma (principal)
CPT/HCPCS: 36415; 82105; 85025

== ENCOUNTER 2018-08-08 10:51 | Outpatient (CLI) | payer MEDICARE, OTHER | END 2018-08-08 10:52 | disposition critical access hospital (66) | LOC: EMS 10:51 | PROVIDERS: ATTEND Surgery | DX: R06.02 Shortness of breath (principal); R05 Cough | CPT/HCPCS: A0425; A0427 ==

== ENCOUNTER 2018-08-08 11:01 | Inpatient (IN) | payer MEDICARE, OTHER ==
[2018-08-08] MEDS ORDERED: ADENOSINE 6 MG/2 ML VIAL IVP ONE ×2 (11:14→11:20)
[2018-08-08] MEDS ORDERED: fentaNYL 100 MCG/2 ML VIAL ONE (11:22)
[2018-08-08] MEDS ORDERED: ASPIRIN CHEW 81 MG TABLET ONE (11:22)
[2018-08-08] MEDS ORDERED: diltiaZEM INJ 125 MG in DEXTROSE 5% 100 ML IV STA ×2 (11:23→11:26)
[2018-08-08] MEDS ORDERED: ADENOSINE 6 MG/2 ML VIAL IVP STA ×2 (11:26)
[2018-08-08] MEDS ORDERED: fentaNYL 100 MCG/2 ML VIAL IVP STA (11:27)
[2018-08-08] MEDS ORDERED: ASPIRIN 325 MG TABLET PO STA (11:27)
--- NOTE | 2018-08-08 11:28 | ED Physician Documentation ---
PD HPI CHEST PAIN - Stated complaint Stated Complaint: AFIB - Chief complaint Chief Complaint: Cardiac - History obtained from History obtained from: Patient, Family, EMS - Additional information Additional information: Patient is an 78-year-old male with history of atrial fibrillation, end-stage liver cancer, and multiple other medical issues presenting via EMS with shortness of breath that started earlier today. Patient is DNR/DNI. History is obtained from EMS, patient, patient's . Reportedly, patient has been his normal state of health over the past several days and denied any particular inciting incident or symptoms such as fever, lightheadedness, dizziness, chest pain, abdominal pain, vomiting, urine or stool changes or other issues. Patient reports sudden onset of shortness of breath without chest pain earlier today. EMS arrived and found patient to have heart rate above 200 and gave diltiazem 20 mg bolus which declined heart rate just under 200, as well as gave DuoNeb for pulmonary findings. Patient arrived requiring oxygen, obviously short of breath but able to speak in full sentences, with heart rate significantly elevated. Currently, patient denies any symptoms besides shortness of breath. He remains chest pain-free. Patient also notes no new calf pain or swelling. Patient denies any particular factors that improve or worsen his symptoms.Patient has not yet taken home medications, including beta-shaina this morning. does report a history of atrial fibrillation, coronary stent, and pacemaker. Only anticoagulation is aspirin. Review of Systems Ten Systems: 10 systems reviewed and negative Constitutional: denies: Fever Cardiac: reports: Palpitations. denies: Chest pain / pressure, Pedal edema, Calf pain Respiratory: reports: Dyspnea. denies: Cough GI: denies: Abdominal Pain, Vomiting, Diarrhea : denies: Dysuria PD PAST MEDICAL HISTORY - Past Medical History Cardiovascular: Hypertension, Angina, Atrial fibrillation, Arrhythmia Respiratory: None Endocrine/Autoimmune: Type 2 diabetes GI: None, Other (Liver carcinoma) : None HEENT: None Psych: None Musculoskeletal: None Derm: None - Past Surgical History Past Surgical History: Yes General: Appendectomy, Colonoscopy Ortho: Shoulder arthroplasty Cardiovascular: Pacemaker, AICD HEENT: Tonsil/Adenoidectomy Derm: Skin cancer surgery - Present Medications Home Medications: Ambulatory Orders Medication Instructions Recorded Confirmed RX: Allopurinol 200 mg PO DAILY 11/01/13 08/08/18 RX: glipiZIDE [Glucotrol] 2.5 mg PO DAILY 11/01/13 08/08/18 RX: Metoprolol Tartrate 25 mg PO QPM 04/10/18 08/08/18 RX: SITagliptin [Januvia] 50 mg PO DAILY 04/11/18 08/08/18 RX: Lisinopril 10 mg PO DAILY 08/08/18 08/08/18 RX: Metoprolol Tartrate 50 mg PO DAILY 08/08/18 08/08/18 - Allergies Allergies/Adverse Reactions: Allergies Allergy/AdvReac Type Severity Reaction Status Date / Time hydrocodone bitartrate * Allergy Severe Hallucinati Verified 08/08/18 11:38 [From [place]] ons quinine Allergy Severe Confusion Verified 08/08/18 11:38 - Social History Does the pt smoke?: No Smoking Status: Former smoker Does the pt drink ETOH?: No Does the pt have substance abuse?: No - Immunizations Immunizations are current?: Yes - POLST Patient has POLST: No PD ED PE NORMAL - General General: Alert and oriented X 3, Well developed/nourished, Other (Mild respiratory distress, but able to speak in full sentences no significant accessory muscle use. No audible stridor or wheezing noted.) - HEENT HEENT: Atraumatic, EOMI, Moist mucous membranes, Pharynx benign - Neck Neck: Supple, no meningeal sign - Cardiac Cardiac: No murmur, Other (Variable heart rate and tachycardic) - Respiratory Respiratory: Other (Diminished throughout with occasional crackles. Mild respiratory distress present without accessory muscle use. Speaking in full sentences.) - Abdomen Abdomen: Soft, Non tender, Non distended - Derm Derm: Normal color, Warm and dry, No rash - Extremities Extremities: No deformity, No tenderness to palpate. No: No edema (Mild, nonpitting pedal edema, which patient reports is chronic) - Neuro Neuro: Alert and oriented X 3, No motor deficit, No sensory deficit - Psych Psych: Normal mood, Normal affect Results - Vitals Vitals: Vital Signs - 24 hr 08/08/18 08/08/18 08/08/18 11:04 11:12 11:14 Temperature 36.4 C L Heart Rate 163 H 170 H 175 H Respiratory 32 H 25 H 22 Rate Blood Pressure 128/92 H 128/92 H 130/87 H O2 Saturation 86 L 89 L 92 08/08/18 08/08/18 08/08/18 11:19 11:38 11:48 Temperature Heart Rate 166 H 182 H 168 H Respiratory 24 30 H 21 Rate Blood Pressure 125/83 H 145/96 H 123/113 H O2 Saturation 88 L 96 95 08/08/18 08/08/18 11:55 12:04 Temperature Heart Rate 166 H 159 H Respiratory 21 22 Rate Blood Pressure 136/81 H 132/88 H O2 Saturation 96 94 Oxygen O2 Source Non-rebreather mask - EKG (time done) 1108 Rate: Rate (enter#) (171), Tachy Rhythm: Atrial fibrillation, V tach, Other (PVCs) Ischemia: Non specific changes 1120 Rate: Rate (enter#) (171), Tachy Rhythm: Atrial fibrillation, V tach, Other (PVC) Ischemia: Non specific changes Compare to prior EKG: Unchanged from prior EKG - Labs Labs: Laboratory Tests 08/08/18 08/08/18 08/08/18 11:26 11:26 11:26 WBC 8.8 RBC 4.10 L Hgb 14.1 Hct 41.9 L MCV 102.3 H MCH 34.4 H MCHC 33.6 RDW 16.7 H Plt Count 128 L MPV 7.6 Neut # (Auto) 6.6 Lymph # (Auto) 1.2 L [place] # (Auto) 0.9 Eos # (Auto) 0.0 Baso # (Auto) 0.1 Absolute Nucleated RBC 0.01 Nucleated RBC % 0.1 PT 14.7 H INR 1.3 H APTT 29.3 Sodium 135 Potassium 3.6 Chloride 102 Carbon Dioxide 23 Anion Gap 10.0 BUN 23 H Creatinine 0.9 Estimated GFR (MDRD) 81 L Glucose 224 H Calcium 9.1 Total Bilirubin 2.8 H AST 157 H ALT 218 H Alkaline Phosphatase 151 H Troponin I B-Natriuretic Peptide Total Protein 8.1 Albumin 3.7 Globulin 4.4 H Albumin/Globulin Ratio 0.8 L Lipase 44 08/08/18 08/08/18 11:26 11:26 WBC RBC Hgb Hct MCV MCH MCHC RDW Plt Count MPV Neut # (Auto) Lymph # (Auto) [place] # (Auto) Eos # (Auto) Baso # (Auto) Absolute Nucleated RBC Nucleated RBC % PT INR APTT Sodium Potassium Chloride Carbon Dioxide Anion Gap BUN Creatinine Estimated GFR (MDRD) Glucose Calcium Total Bilirubin AST ALT Alkaline Phosphatase Troponin I < 0.04 B-Natriuretic Peptide 489 H Total Protein Albumin Globulin Albumin/Globulin Ratio Lipase PD MEDICAL DECISION MAKING - ED course Complexity details: reviewed old records, reviewed results, re-evaluated patient, considered differential, d/w patient, d/w family, d/w healthcare consultant ED course: Patient has a history of atrial fibrillation, although is not on significant anticoagulation except for aspirin. Patient also regularly takes a beta- shaina, metoprolol, but did not take his morning medications yet today.Per , patient also has history of coronary stent and pacemaker. Patient arrives dyspneic requiring supplemental oxygen and is transitioned from nasal cannula to nonrebreather immediately upon arrival. EKG and cardiac monitoring immediately placed. Also reviewing multiple strips, both from EMS, and child monitor in ED. Have concern for multiple rhythms including atrial fibrillation with RVR, atrial flutter, SVT, and V. tach.Patient had received DuoNeb for pulmonary complaints, as well as a bolus of diltiazem 20 mg in route. EMS reports patient's initial heart rate of over 200 did decline somewhat with administration of diltiazem. Patient is currently symptomatic from his persistently elevated heart rate, as well as tachypneic and hypoxic, which is improved with oxygen administration. Blood pressure remains stable. Discussed status with both him and his and both reinforce that he is DNI/DNR. Patient also Is not particularly favorable of cardioversion and that is held at this time. Given concern for multiple rhythms, as well as slowing of heart rate, I administered 2 doses of adenosine without much relief. Diltiazem drip prepared. Patient also was given aspirin and fentanyl given concerns for card iac etiology, although patient denies chest pain during entire stay in the ED. I have low suspicion for ACS, myocardial infarction, unstable angina or cardiomyopathy at this time.Chest x-ray, portable, also obtained given patient's respiratory issues, but not find acute pathology such as pneumonia and have lower suspicion for respiratory pathology, including PE.Given concern for rhythm, as well as runs of ventricular tachycardia, consulted hospitalist, who has background in cardiology. She was able to visit with me patient in ED and review what has been done and agree with moving forward with diltiazem drip.Screening lab work also obtained. Patient to be admitted to hospitalist service. Further interventions deferred to hospitalist. Patient and family reevaluated updated several times and are comfortable with this plan. - Critical Care Time(min): 40 Time Includes: Direct patient care, Review records, Reassess patient, Medical consult, Family consult for tx dec, See progress note Data interpretation: Pulse ox, Prior EKG, See progress note Departure - Departure Disposition: 66 [facility] DC/Xfer Clinical Impression: Atrial fibrillation with RVR A-fib Qualifiers: Atrial fibrillation type: unspecified Qualified Code(s): I48.91 - Unspecified atrial fibrillation Dyspnea Qualifiers: Dyspnea type: shortness of breath Qualified Code(s): R06.02 - Shortness of breath; R06.00 - Dyspnea, unspecified; R06.01 - Orthopnea Condition: Critical Discharge Date/Time: 08/08/18 14:20
[2018-08-08 11:40] LABS: BASOPHILS # (AUTO) 0.1 10^3/uL (0.0-0.1); BASOPHILS % (AUTO) 1.4 %; EOSINOPHILS % (AUTO) 0.5 %; HGB - HEMOGLOBIN 14.1 g/dL (14.0-18.0); LYMPHOCYTES # (AUTO) 1.2 10^3/uL (1.5-3.5); LYMPHOCYTES % (AUTO) 13.1 %; MEAN CORPUSCULAR HEMOGLOBIN 34.4 pg (27.0-31.0); MEAN CORPUSCULAR HGB CONC 33.6 g/dL (32.0-36.0); MEAN CORPUSCULAR VOLUME 102.3 fL (80.0-94.0); MEAN PLATELET VOLUME 7.6 fL (7.4-11.4); MONOCYTES # (AUTO) 0.9 10^3/uL (0.0-1.0); MONOCYTES % (AUTO) 10.2 %; NEUTROPHILS # (AUTO) 6.6 10^3/uL (1.5-6.6); NEUTROPHILS % (AUTO) 74.8 %; PLT - PLATELET COUNT 128 10^3/uL (130-450); RED CELL DISTRIBUTION WIDTH 16.7 % (12.0-15.0); WHITE BLOOD COUNT 8.8 x10^3/uL (4.8-10.8)
[2018-08-08 11:54] LABS: ALBUMIN 3.7 g/dL (3.2-5.5); ALBUMIN/GLOBULIN RATIO 0.8 (1.0-2.2); BILIRUBIN,TOTAL 2.8 mg/dL (0.2-1.0); CALCIUM 9.1 mg/dL (8.5-10.3); CREATININE 0.9 mg/dL (0.6-1.2); TOTAL PROTEIN 8.1 g/dL (6.7-8.2)
[2018-08-08 11:55] LABS: INR 1.3 (0.8-1.2); PT - PROTHROMBIN TIME 14.7 secs (9.9-12.6)
[2018-08-08] MEDS ORDERED: PROCHLORPERAZINE 10 MG/2 ML VIAL IVP PRN (12:05)
[2018-08-08] MEDS ORDERED: ACETAMINOPHEN 325 MG TABLET PO PRN (12:05)
[2018-08-08 12:10] LABS: PARTIAL THROMBOPLASTIN TIME 29.3 secs (24.9-33.3)
--- NOTE | 2018-08-08 12:28 | XRAY Report ---
Reason: chest pain Procedure Date: 08/08/2018 Accession Number: [id number] / [id number] Procedure: XR - Chest 1 View X-Ray CPT Code: 73533 FULL RESULT: EXAM: CHEST RADIOGRAPHY EXAM DATE: 08/08/2018 11:48 AM. CLINICAL HISTORY: Chest Pain. COMPARISON: CHEST 2 VIEW PA/LAT 12/26/2016 4:25 PM ABDOMEN W/WO 07/16/2018 11:48 AM. TECHNIQUE: 1 view. FINDINGS: Lungs/Pleura: There is moderate pulmonary vascular congestion and edema. There is increasing opacification over the right lung base which appears to be in part due to underlying moderate effusion. No pneumothorax. Mediastinum: Heart and mediastinal contours are notable for aortic calcification. Left sided cardiac implant is in place with lead projecting over right ventricular apex. Other: None. IMPRESSION: 1. Moderate CHF/fluid overload. 2. Moderate opacification of the right lung base, suspect large effusion. Superimposed pneumonia or mass is not excluded. RADIA
[2018-08-08] MEDS ORDERED: methylPREDNISolone SUCCINATE 40 MG/ML VIAL IVP SCH (14:00)
[2018-08-08] MEDS ORDERED: diltiaZEM INJ 125 MG in DEXTROSE 5% 100 ML IV SCH (14:00)
[2018-08-08] MEDS: LEVALBUTEROL 1.25 MG/3 ML NEB INH SCH ×3 (14:15→19:49)
[2018-08-08] MEDS: IPRATROPIUM 0.2 MG/ML NEB INH SCH ×2 (14:15→19:49)
[2018-08-08] MEDS ORDERED: FUROSEMIDE 20 MG/2 ML VIAL IVP SCH ×2 (14:39→19:00)
[2018-08-08] MEDS: METOPROLOL SUCCINATE 25 MG TABLET PO SCH (14:46)
[2018-08-08] MEDS ORDERED: SODIUM CHLORIDE 0.9% 500 ML IV ONE (14:59)
[2018-08-08] MEDS: SODIUM CHLORIDE FLUSH 0.9% 10 ML SYRINGE IVP PRN ×2 (15:04→20:49)
[2018-08-08] MEDS: SODIUM CHLORIDE FLUSH 0.9% 10 ML SYRINGE IVP SCH (16:26)
[2018-08-08] MEDS: FAMOTIDINE 20 MG/2 ML VIAL IVP SCH ×2 (16:26→20:45)
[2018-08-08] MEDS ORDERED: ENOXAPARIN 40 MG/0.4 ML SYRINGE SUBQ SCH (17:35)
[2018-08-08 18:11] LABS: BILIRUBIN,URINE NEGATIVE (NEGATIVE); GLUCOSE, URINE (UA) NEGATIVE (NEGATIVE); KETONES,URINE (UA) TRACE mg/dL (NEGATIVE); LEUKOCYTE ESTERASE, URINE NEGATIVE (NEGATIVE); NITRITE,URINE NEGATIVE (NEGATIVE); OCCULT BLOOD,URINE TRACE-INTA (NEGATIVE); PH,URINE 5.5 PH (5.0-7.5); PROTEIN,URINE 100 mg/dL (NEGATIVE); UROBILINOGEN,URINE 0.2 (NORMAL) E.U./dL (NORMAL)
[2018-08-08 18:18] LABS: HB2 TOTAL 14.5 g/dL; HEMOGLOBIN A1C 0.58 g/dL; HEMOGLOBIN A1C % 5.8 % (4.6-6.2)
[2018-08-08 18:26] LABS: AMORPHOUS SEDIMENT,UR Marked /LPF; BACTERIA,URINE None Seen /HPF (None Seen); CLARITY,URINE CLOUDY (CLEAR); RBC,URINE None Seen /HPF (0-5); SQUAMOUS EPITHELIAL CELL,UR NONE SEEN (<= Few)
--- NOTE | 2018-08-08 18:29 | PROVIDER PROGRESS NOTE ---
Hospitalist Cross-cover Note - Cross-Cover Note Cross-Cover Note: The 2nd troponin came back at 0.8, indicating he is having an acute NSTEMI. The BP's have dropped to 80-90 systolic for the past 2 hours, ever since BIPAP was started. He has had only 15 cc/hr of urine output since the 1430 Lasix was given. The Echo report shows LVEF 30-35%, a dilated RV with septal flattening, Pulm HTN with PA press 81 mmHg increased from 48 mmHg ? years ago, moderate-severe mitral and severe tricuspid regurg, also moderate-severe aortic stenosis. Mg level is OK. His exam is unchanged: distant heart sounds, distant breath sounds. Imp: Cardiogenic shock Acute NSTEMI Cor pulmonale, severe BIPAP is adding to excessive preload reduction, underfilling the LV Aortic stenosis and mitral regurg are adding to decreased cardiac output and hypotension Afib with RVR is also causing demand ischemia Plan: Start medical management for acute NC with 4 baby aspirin Therapeutic Lovenox He got 1 dose of B-shaina No Nitrates due to low BP add Dig iv for rate control Cardizem has been titrated down from 15 to 4, HR is 90-100 Wean BIPAP down to off and resume non-rebreather mask with supplemental oxygen, if he will tolerate that. No intubation or ventilator is already his wish. Add pressors if needed to keep MAP >65 for organ perfusion If he is severely dyspneic, consider small dose of Morphine, despite his Codeine allergy (which caused confusion, but not rash or anaphylaxis) Determine if he indeed has end stage liver disease and what his prognosis is>> the daughter told me his chemo was stopped 1 week ago and they said he has 3 mos to 1.5 years to live. Determine if patient wants transfer to a facility for acute coronary care with catheterization>> knowing the above cancer prognosis, he may not be accepted in transfer. He was able to converse with me and states he wants no transfer, just medical management. The family was informed that he is in critical condition and may not survive this hospitalization. CRITICAL CARE TIME spent: 45 min (med adjustment, patient evaluation and discussion with patient and family)
[2018-08-08] MEDS: ASPIRIN CHEW 81 MG TABLET PO SCH (18:41)
[2018-08-08] MEDS: DIGOXIN 500 MCG/2 ML AMP IVP SCH (19:19)
[2018-08-08] MEDS ORDERED: ENOXAPARIN 30 MG/0.3 ML SYRINGE SUBQ SCH (20:00)
[2018-08-08] MEDS ORDERED: methylPREDNISolone SUCCINATE 125 MG/2 ML VIAL IVP SCH (20:04)
[2018-08-08] MEDS ORDERED: INSULIN ASPART 300 UNIT/3 ML PEN SUBQ SCH (21:00)
--- NOTE | 2018-08-08 22:15 | HISTORY & PHYSICAL EXAMINATION ---
DATE OF SERVICE: 08/08/2018 Physician: Genesis Peguero MD HISTORY OF PRESENT ILLNESS: This is an 78-year-old white male with a history of prior atrial fibrillation that was noted during a chest pain admission here in March 2018, history of liver cancer, COPD, ex-smoker, cardiomyopathy, hypertension and diabetes, on oral agents. The history is obtained from EMS, the ER record, the patient's and our pharmacist, since the patient is short of breath and currently on BiPAP and cannot give details, but answers briefly. Apparently, the patient stopped taking his Lasix on his own possibly a week ago. He states he does not know why he stopped Lasix. The tells me that he makes medication changes on his own without asking his doctor. Today, he developed rapid onset of severe shortness of breath, an ambulance was called and found that he had a heart rate over 200, gave a diltiazem 20 mg IV bolus and the heart rate only dropped to 190s. They also gave a DuoNeb treatment en route. He was found to be in severe respiratory distress in the emergency room with pursed lip breathing and tripoding. He was in atrial fibrillation and atrial flutter with a rapid ventricular rate in the 200 range. There were short bursts of VTach. He received adenosine 6 mg and 12 mg, which had no effect on the rhythm. He was then started on a Cardizem drip and is being admitted to the ICU. He was put on supplemental oxygen by nasal cannula; however, remained in respiratory distress and is now on BiPAP and feels better. The patient denies any chest pain. No other pain anywhere. No cough with sputum or fever; however, he had a dry cough for the last two weeks, according to the daughter. The patient has a history of coronary stent and a pacemaker. He was on Coumadin in the past, but this caused bleeding in his peritoneum and he has not been on it for many years. He is currently only on aspirin. PAST MEDICAL HISTORY 1. Liver cancer. 2. Prior atrial fibrillation. 3. Cardiomyopathy. 4. Diabetes. 5. COPD. 6. Defibrillator. 7. Skin cancer surgery. ALLERGIES 1. HYDROCODONE, which caused hallucinations. 2. QUININE, which cause confusion. MEDICATIONS 1. Allopurinol 200 mg daily. 2. Glipizide 2.5 mg daily. 3. Metoprolol tartrate 50 mg in the morning, 25 mg every night. 4. Januvia 50 mg daily. 5. Lisinopril 10 mg daily. 6. Possibly aspirin, but it is not listed. REVIEW OF SYSTEMS: A comprehensive review of system was performed and the pertinent positives are listed, the rest are negative. SOCIAL HISTORY: The patient is an ex-smoker, quit several years ago, drank alcohol socially, minimally now, no illicit drug use history. FAMILY HISTORY: No inherited diseases. PHYSICAL EXAMINATION GENERAL: Thin, elderly white male on BiPAP stating that his respirations are more comfortable. VITAL SIGNS: Respiratory rate now 19, but when he was in the emergency room, he had a respiratory rate of 32. Blood pressure 128/90, heart rate of 175 in the ER. Blood pressure is now 100/72 with a heart rate of 111, in atrial fibrillation. He is afebrile. On BiPAP, he has a 95% saturation on 40% FiO2. HEENT: On BIPAP, possibly icteric. NECK: Shows positive JVD in a vertical position. CHEST: Diffusely diminished breath sounds. No rales, rhonchi, or wheezes are heard. HEART: Heart sounds are distant, but tachycardic. ABDOMEN: Soft, nontender. EXTREMITIES: No clubbing, cyanosis, edema. NEUROLOGIC: Grossly intact. LABORATORIES: Normal electrolytes. Normal BUN and creatinine. AST is 157, ALT 218, alkaline phosphatase 151, bilirubin 2.8. BNP 489. The first troponin is not detectable. INR 1.3. White blood count 8.8, hemoglobin 14 with an MCV of 102, platelet count 128. He is negative for MRSA. He did not have an influenza swab. Chest x-ray: Right-sided pleural effusion and CHF mostly on the right side, cannot rule out an underlying infiltrate versus mass, and cardiomegaly is present. EKG: Atrial fibrillation with a rapid rate of 171, vertical axis, LVH voltage, poor R-wave progression, diffuse nonspecific ST-T changes. ASSESSMENT 1. Acute exacerbation of congestive heart failure. 2. Acute on chronic systolic heart failure, [place] Heart Association class IV. 3. Chronic obstructive pulmonary disease with acute exacerbation. 4. Nonsustained ventricular tachycardia. 5. Atrial fibrillation with rapid ventricular response. 6. Pleural effusion, which could be due to malignancy. 7. Liver cancer. 8. Diabetes type 2. PLAN: Admit the patient to the ICU on telemetry. Continue with his BiPAP, start IV steroids, nebulizers via BiPAP for COPD exacerbation. Obtain sputum culture if he makes it. However, because of its acuteness of onset, this is more likely congestive heart failure; therefore, continue with IV diuresis, follow his I's and O's, daily weights, daily BMP and magnesium. Continue with heart rate control management using Cardizem drip and continue with his oral beta shaina. Begin a carb controlled diet, if he is able to tolerate time off of the BiPAP, and sliding scale insulin coverage for fingerstick glucose checks. Obtain an Echo to establish LV and RV contractility, follow his troponins x3. Obtain history about his liver cancer including prognosis. The patient has a DNR/DNI signed since 2016, which will be ordered. DEEP VENOUS THROMBOSIS PROPHYLAXIS: Pharmacotherapy. CODE STATUS: DNR. ATTESTATION: The patient is expected to be discharged or transferred to another facility within 96 hours: Yes. TD: 08/08/2018 17:44 MICHAEL
[2018-08-09] MEDS: SODIUM CHLORIDE FLUSH 0.9% 10 ML SYRINGE IVP SCH ×3 (00:41→17:51)
[2018-08-09] MEDS ORDERED: methylPREDNISolone SUCCINATE 40 MG/ML VIAL IVP SCH ×2 (04:00→14:00)
[2018-08-09] MEDS: SODIUM CHLORIDE FLUSH 0.9% 10 ML SYRINGE IVP PRN ×2 (04:02→21:58)
[2018-08-09 05:15] LABS: BASOPHILS % (AUTO) 0.2 %; HGB - HEMOGLOBIN 13.7 g/dL (14.0-18.0); LYMPHOCYTES # (AUTO) 0.3 10^3/uL (1.5-3.5); LYMPHOCYTES % (AUTO) 6.4 %; MEAN CORPUSCULAR HEMOGLOBIN 34.5 pg (27.0-31.0); MEAN CORPUSCULAR HGB CONC 33.4 g/dL (32.0-36.0); MEAN CORPUSCULAR VOLUME 103.5 fL (80.0-94.0); MEAN PLATELET VOLUME 8.1 fL (7.4-11.4); MONOCYTES # (AUTO) 0.3 10^3/uL (0.0-1.0); MONOCYTES % (AUTO) 6.5 %; NEUTROPHILS # (AUTO) 4.5 10^3/uL (1.5-6.6); NEUTROPHILS % (AUTO) 86.9 %; PLT - PLATELET COUNT 99 10^3/uL (130-450); RED BLOOD COUNT 3.96 10^6/uL (4.70-6.10); RED CELL DISTRIBUTION WIDTH 17.3 % (12.0-15.0); WHITE BLOOD COUNT 5.1 x10^3/uL (4.8-10.8)
[2018-08-09 05:28] LABS: ALBUMIN 3.2 g/dL (3.2-5.5); ALBUMIN/GLOBULIN RATIO 0.7 (1.0-2.2); BILIRUBIN,TOTAL 2.1 mg/dL (0.2-1.0); CALCIUM 9.4 mg/dL (8.5-10.3); CREATININE 1.7 mg/dL (0.6-1.2); PHOSPHORUS 5.3 mg/dL (2.5-4.6); TOTAL PROTEIN 7.5 g/dL (6.7-8.2)
--- NOTE | 2018-08-09 06:04 | XRAY Report ---
Reason: F/U COPD Procedure Date: 08/09/2018 Accession Number: [id number] / [id number] Procedure: XR - Chest 1 View X-Ray CPT Code: 11538 FULL RESULT: EXAM: CHEST RADIOGRAPHY EXAM DATE: 08/09/2018 05:07 AM. CLINICAL HISTORY: Follow-up COPD. COMPARISON:CHEST 1 VIEW 08/08/2018 11:36 AM, CHEST W/ 04/10/2018 3:32 PM. TECHNIQUE: 1 view. FINDINGS IMPRESSION: 1. Large right-sided pleural effusion is present. There is moderate right lung consolidation, presumable compressive atelectasis. 2. Small left basilar consolidation is again seen without significant change. 3. There is a background of pulmonary vascular congestion and interstitial edema similar to the recent prior study. 4. Cardiac silhouette is mild to moderately enlarged. 5. ICD device to project at the right ventricle apex. 6. No definite pneumothorax visualized at this time. RADIA
[2018-08-09] MEDS: FUROSEMIDE 20 MG/2 ML VIAL IVP SCH ×2 (06:28→13:35)
[2018-08-09] MEDS: METOPROLOL SUCCINATE 25 MG TABLET PO SCH ×2 (06:59→17:56)
[2018-08-09] MEDS: LEVALBUTEROL 1.25 MG/3 ML NEB INH PRN ×3 (07:15→15:24)
[2018-08-09] MEDS: IPRATROPIUM 0.2 MG/ML NEB INH SCH ×4 (07:16→19:58)
[2018-08-09] MEDS: DIGOXIN 500 MCG/2 ML AMP IVP SCH (07:44)
[2018-08-09] MEDS: INSULIN ASPART 300 UNIT/3 ML PEN SUBQ SCH ×4 (08:16→21:17)
[2018-08-09 08:20] LABS: ABG BASE EXCESS -3.5 mmol/L (-2.0-3.0); ABG HCO3 19.4 mmol/L (22.0-26.0); ABG OXYGEN SATURATION 95 % (94-98); ABG PCO2 30 mmHg (34-45); ABG PH 7.44 (7.35-7.45); ABG PO2 74 mmHg (80-100); ABG TCO2 20.3 MMOL/L (21.0-29.0); ALLEN TEST POSITIVE
[2018-08-09] MEDS: ENOXAPARIN 80 MG/0.8 ML SYRINGE SUBQ SCH ×2 (08:43→20:35)
[2018-08-09] MEDS ORDERED: ASPIRIN EC 325 MG TABLET PO SCH (09:00)
--- NOTE | 2018-08-09 09:21 | CT Report ---
Reason: confusion, unequal pupils, Afib Procedure Date: 08/09/2018 Accession Number: [id number] / [id number] Procedure: CT - Head W/O Stroke Protocol CPT Code: FULL RESULT: EXAM: CT HEAD EXAM DATE: 08/09/2018 09:09 AM. CLINICAL HISTORY: Confusion, unequal pupils, AFib. COMPARISON: None. TECHNIQUE: Multiaxial CT images were obtained from the foramen magnum to the vertex. Reformats: Sagittal and coronal. IV contrast: None. In accordance with CT protocol optimization, one or more of the following dose reduction techniques were utilized for this exam: automated exposure control, adjustment of mA and/or KV based on patient size, or use of iterative reconstructive technique. FINDINGS: Parenchyma: No intraparenchymal hemorrhage. No evidence of mass, midline shift, or CT findings of acute infarction. Arellano-white differentiation is distinct. There is focal encephalomalacia in the left frontal periventricular white matter consistent with sequela of remote white matter infarct. Extraaxial Spaces: Normal for age. No subdural or epidural collections identified. Ventricles: Normal in size and position. Sinuses and Orbits: Imaged paranasal sinuses, orbits, and mastoids show no significant abnormality. Bones: No evidence of fracture or calvarial defect. Other: None. IMPRESSION: 1. No evidence of acute cortical infarction, intracranial hemorrhage or mass effect. 2. 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 RADIA The critical test notification system was initiated by Dr. Julio Jackson at 09:19 AM on 08/09/2018. ADDENDUM: 08/09/18 09:24 The above critical test findings were discussed with Genesis Peguero by Dr. Julio Jackson at 09:24 AM on 08/09/2018.
[2018-08-09 09:25] LABS: DIGOXIN 3.3 ng/mL
[2018-08-09] MEDS: FAMOTIDINE 20 MG/2 ML VIAL IVP SCH (09:56)
[2018-08-09] MEDS: POLYETHYLENE GLYCOL 3350 17 GM PACKET PO SCH (09:59)
[2018-08-09] MEDS: diltiaZEM 30 MG TABLET PO SCH ×3 (09:59→17:56)
[2018-08-09] MEDS: guaiFENesin 600 MG TABLET PO SCH ×2 (10:00→20:35)
[2018-08-09] MEDS: ASPIRIN CHEW 81 MG TABLET PO SCH (10:04)
--- NOTE | 2018-08-09 10:40 | PROVIDER PROGRESS NOTE ---
Assessment/Plan - Problem List (1) Acute non-ST elevation myocardial infarction (NSTEMI) Assessment/Plan: Troponin was still climbing this am. Continue medical management: asa, B-shaina, statin, diuretics, add ANAID tomorrow if creat not climbing further. No intervention or transfers to higher level of care is desired. (2) Confusion Assessment/Plan: Head CT did not show an acute stroke or any hemorrhage. Possibly he is fidgety, picking at connections and confused due to high dose steroids. Will decrease dose slightly. (3) Lung infiltrate Assessment/Plan: The family states that he has had "lung collapse" . Will treat as CAP using Zithromax po and iv Ceftriaxone. Sputum culture ordered. Will order Acapella flutter valve for expectoration and IS for the atelectasis. (4) ADELITA (acute kidney injury) Assessment/Plan: Likely from his diuresis, which he still needs, based on repeat CXR which showed no significant change in CHF Follow BMP daily. (5) Acute on chronic systolic CHF (congestive heart failure), NYHA class 4 Assessment/Plan: Continue gentle diuresis with Lasix. Will add Spironolactone 12.5 mg daily. Continue Metoprolol, preferred over Coreg due to B-1 selective B-shaina for a COPDer. No ANAID or ARB due to borderline low BP and climbing creat today. Follow BMP and Mg daily. (6) Cardiogenic shock Assessment/Plan: Resolved, without using pressors, improved when tachycardia was controlled. (7) Atrial fibrillation with RVR Assessment/Plan: The HR is controlled on iv Cardizem drip >> po Cardizem and he is able to take po Metoprolol bid. He needed Dig iv yesterday, when BP was low and he did get an iv dise this am. A randome Dig level was done today (not realizing he got a dose iv this am).The result of 3.3 is therefore not a trogh level, so he may not have Did excess. Will check a Dig level tomorrow a.m. He may not need further Dig, as his HR may be controlled with Metoprolol po and Cardizem po. He is also on therapeutic Lovenox (not prophylactic dose) and will need determination if he should get po antivoagulation, since he had a peritoneal bleed when he was on Coumadin, years ago. (8) HCC (hepatocellular carcinoma) Assessment/Plan: His prognosis is 3 mos to 1.5 years, per the Oncologist visit 1 month ago, reported to me by daughter. (9) DM2 (diabetes mellitus, type 2) Assessment/Plan: Carb-controlled diet, fingerstick glu checks to be covered with ss Insulin. - Current Meds Current Meds: Current Medications Generic Name Dose Route Start Last Admin Trade Name Freq PRN Reason Stop Dose Admin Aspirin 324 mg 08/08/18 18:24 08/09/18 10:04 St Momo Aspirin PO 324 mg DAILY LYNNE Administration Diltiazem HCl 30 mg 08/09/18 09:25 08/09/18 09:59 Cardizem PO 30 mg Q6HR LYNNE Administration Enoxaparin Sodium 70 mg 08/09/18 09:00 08/09/18 08:43 Lovenox SUBQ Not Given BID LYNNE Furosemide 20 mg 08/09/18 06:00 08/09/18 06:28 Lasix Inj 20mg Vial IVP 20 mg BIDDIURETIC LYNNE Administration Guaifenesin 600 mg 08/09/18 10:00 08/09/18 10:00 Mucinex PO 600 mg BID LYNNE Administration Insulin Aspart 1 - 9 unit 08/09/18 08:00 08/09/18 08:16 Novolog SUBQ 5 unit 0800,1200,1700,2100 LYNNE Administration Protocol Ipratropium Cherry Log 0.5 mg 08/08/18 12:43 08/09/18 07:16 Atrovent INH 0.5 mg RTQID LYNNE Administration Levalbuterol HCl 1.25 mg 08/08/18 20:05 08/09/18 07:15 Xopenex INH 1.25 mg RTQ4H PRN Administration Dyspnea Polyethylene Glycol 17 gm 08/09/18 09:00 08/09/18 09:59 Miralax PO Not Given DAILY LYNNE Sodium Chloride 10 ml 08/08/18 17:00 08/09/18 08:36 Normal Saline Flush 0.9% IVP 10 ml 0100,0900,1700 LYNNE Administration Sodium Chloride 10 ml 08/08/18 12:05 08/09/18 04:02 Normal Saline Flush 0.9% IVP 10 ml PRN PRN Administration NEEDED PER PROVIDER ORDERS - Lab Result Fish Bone Diagrams: 08/09/18 04:41 08/09/18 04:41 - Additional Planning My Orders: My Active Orders 08/08/18 12:05 Activity Orders [RC] Q2HR Daily Weight [RC] 0600 IO [RC] Q1HR IV Insert [RC] ONCE Initiate Bowel Care Protocol [RC] QSHIFT Initiate ICU Electrolyte Prot. [RC] .protocol Initiate Line Care Protocol [RC] .protocol Initiate Line Care Protocol [RC] .protocol Initiate Personal Care Protoco [RC] .protocol Nutrition Consult [CONS] Routine Acetaminophen [Tylenol] 650 mg PO Q4HR PRN Prochlorperazine Inj [Compazine Inj] 10 mg IVP Q6HR PRN Sodium Chloride Flush 0.9% [Normal Saline Flush 0.9%] 10 ml IVP PRN PRN Code Status [OTHERS] Routine Condition of Patient [OTHERS] Routine DVT Prophylaxis [OTHERS] Routine 08/08/18 12:10 Telemetry- [RC] Q4HR Turn, Cough and Deep Breathe [RC] Routine 08/08/18 12:11 Oral Care - Nursing [RC] Routine Oxygen Therapy [RC] Routine 08/08/18 12:19 Echo Transthoracic Complete [ECHO] Routine 08/08/18 12:24 Resp Teach Nebulizer/MDI [RC] .ONCE 08/08/18 12:43 Ipratropium [Atrovent] 0.5 mg INH RTQID 08/08/18 14:17 Nebulizer/MDI Tx. [RC] .qid 08/08/18 14:39 Odonnell Insertion [RC] QSHIFT 08/08/18 17:00 Sodium Chloride Flush 0.9% [Normal Saline Flush 0.9%] 10 ml IVP 0100,0900,1700 08/08/18 17:10 BiPAP [BiPAP/CPAP] [RC] Q2HR 08/08/18 17:35 Blood Glucose Checks - Eating [RC] 0800,1200,1700,2100 Initiate Hypoglycemia Protocol [RC] .protocol 08/08/18 18:24 Aspirin Chewable [St Momo Aspirin] 324 mg PO DAILY 08/08/18 Lunch Carb-controlled Diet [DIET] Dysphagia Puree Diet [DIET] 08/09/18 06:00 FUROSEMIDE INJ 20mg VIAL [LASIX INJ 20mg VIAL] 20 mg IVP BIDDIURETIC 08/09/18 09:00 Allopurinol [Zyloprim] 200 mg PO DAILY Enoxaparin [Lovenox] 70 mg SUBQ BID Polyethylene Glycol 3350 [Miralax] 17 gm PO DAILY 08/09/18 09:25 diltiaZEM [Cardizem] 30 mg PO Q6HR 08/09/18 10:00 guaiFENesin [Mucinex] 600 mg PO BID 08/09/18 10:13 Famotidine [Pepcid] 20 mg IVP DAILY 08/09/18 14:00 methylPREDNISolone SUCCINATE [SOLU-Medrol (40MG VIAL)] 40 mg IVP TID 08/09/18 18:00 Metoprolol Succinate [Toprol Xl] 25 mg PO 0800,1800 08/10/18 05:00 CBC - COMP BLD CT W/AUTO DIFF [HEME] DAILYLAB COMPREHENSIVE METABOLIC PANEL [CHEM] DAILYLAB 08/11/18 05:00 CBC - COMP BLD CT W/AUTO DIFF [HEME] DAILYLAB COMPREHENSIVE METABOLIC PANEL [CHEM] DAILYLAB 08/12/18 05:00 CBC - COMP BLD CT W/AUTO DIFF [HEME] DAILYLAB COMPREHENSIVE METABOLIC PANEL [CHEM] DAILYLAB Subjective - Subjective Patient Reports: Feeling Better, Resting Comfortably Nursing Reports: Other (Got [place] [facility] [place] and had [place] normal BM.) Objective Vital Signs: Vital Signs - 24 hr 08/08/18 08/08/18 08/08/18 11:04 11:12 11:14 Temperature 36.4 C L Heart Rate 163 H 170 H 175 H Heart Rate [ Monitoring electrodes] Respiratory 32 H 25 H 22 Rate Blood Pressure 128/92 H 128/92 H 130/87 H Blood Pressure [Left Brachial artery] Blood Pressure [Right Brachial artery] O2 Saturation 86 L 89 L 92 08/08/18 08/08/18 08/08/18 11:19 11:38 11:48 Temperature Heart Rate 166 H 182 H 168 H Heart Rate [ Monitoring electrodes] Respiratory 24 30 H 21 Rate Blood Pressure 125/83 H 145/96 H 123/113 H Blood Pressure [Left Brachial artery] Blood Pressure [Right Brachial artery] O2 Saturation 88 L 96 95 08/08/18 08/08/18 08/08/18 11:55 12:04 12:22 Temperature Heart Rate 166 H 159 H 149 H Heart Rate [ Monitoring electrodes] Respiratory 21 22 21 Rate Blood Pressure 136/81 H 132/88 H 129/82 H Blood Pressure [Left Brachial artery] Blood Pressure [Right Brachial artery] O2 Saturation 96 94 95 08/08/18 08/08/18 08/08/18 12:25 12:45 13:17 Temperature 37.0 C Heart Rate 156 H 151 H Heart Rate [ Monitoring electrodes] Respiratory 23 22 Rate Blood Pressure 119/99 H 116/84 H Blood Pressure [Left Brachial artery] Blood Pressure [Right Brachial artery] O2 Saturation 94 92 08/08/18 08/08/18 08/08/18 13:39 14:11 14:15 Temperature 36.3 C L Heart Rate 142 H Heart Rate [ 128 H 140 H Monitoring electrodes] Respiratory 28 H 25 H 29 H Rate Blood Pressure 124/86 H Blood Pressure [Left Brachial artery] Blood Pressure 112/82 H 115/71 [Right Brachial artery] O2 Saturation 92 93 93 08/08/18 08/08/18 08/08/18 14:30 14:45 15:00 Temperature Heart Rate Heart Rate [ 142 H 130 H 137 H Monitoring electrodes] Respiratory 21 20 22 Rate Blood Pressure Blood Pressure [Left Brachial artery] Blood Pressure 115/71 100/72 114/68 [Right Brachial artery] O2 Saturation 92 93 98 08/08/18 08/08/18 08/08/18 15:04 15:30 15:50 Temperature Heart Rate 97 Heart Rate [ 123 H 138 H Monitoring electrodes] Respiratory 22 20 Rate Blood Pressure Blood Pressure [Left Brachial artery] Blood Pressure 114/68 117/72 [Right Brachial artery] O2 Saturation 2 L 92 08/08/18 08/08/18 08/08/18 16:00 16:30 16:45 Temperature 36.1 C L Heart Rate Heart Rate [ 112 H 97 97 Monitoring electrodes] Respiratory 20 19 20 Rate Blood Pressure Blood Pressure 95/71 [Left Brachial artery] Blood Pressure 92/61 90/68 [Right Brachial artery] O2 Saturation 96 96 97 08/08/18 08/08/18 08/08/18 17:00 17:25 17:30 Temperature Heart Rate Heart Rate [ 89 85 83 Monitoring electrodes] Respiratory 20 23 20 Rate Blood Pressure Blood Pressure [Left Brachial artery] Blood Pressure 84/58 L 85/66 L 82/68 L [Right Brachial artery] O2 Saturation 97 95 96 08/08/18 08/08/18 08/08/18 17:45 17:55 18:00 Temperature Heart Rate 80 Heart Rate [ 88 83 Monitoring electrodes] Respiratory 19 23 23 Rate Blood Pressure Blood Pressure [Left Brachial artery] Blood Pressure 75/57 L 72/60 L [Right Brachial artery] O2 Saturation 95 96 08/08/18 08/08/18 08/08/18 18:15 18:30 18:47 Temperature Heart Rate Heart Rate [ 84 81 81 Monitoring electrodes] Respiratory 22 20 24 Rate Blood Pressure Blood Pressure [Left Brachial artery] Blood Pressure 81/55 L 83/61 L 96/72 [Right Brachial artery] O2 Saturation 96 95 95 08/08/18 08/08/18 08/08/18 19:00 19:19 19:38 Temperature 36.0 C L Heart Rate 89 Heart Rate [ 78 89 Monitoring electrodes] Respiratory 24 20 Rate Blood Pressure Blood Pressure [Left Brachial artery] Blood Pressure 99/75 81/55 L [Right Brachial artery] O2 Saturation 94 99 08/08/18 08/08/18 08/08/18 19:50 20:00 21:00 Temperature Heart Rate 83 Heart Rate [ 85 79 Monitoring electrodes] Respiratory 22 21 22 Rate Blood Pressure Blood Pressure [Left Brachial artery] Blood Pressure 83/70 L 110/65 [Right Brachial artery] O2 Saturation 100 97 08/08/18 08/08/18 08/08/18 21:59 22:00 23:00 Temperature Heart Rate 95 Heart Rate [ 87 83 Monitoring electrodes] Respiratory 21 21 Rate Blood Pressure Blood Pressure [Left Brachial artery] Blood Pressure 122/67 101/71 [Right Brachial artery] O2 Saturation 97 94 08/08/18 08/09/18 08/09/18 23:37 00:00 01:00 Temperature 36.2 C L Heart Rate 81 Heart Rate [ 80 84 Monitoring electrodes] Respiratory 24 24 Rate Blood Pressure Blood Pressure [Left Brachial artery] Blood Pressure 109/65 113/79 [Right Brachial artery] O2 Saturation 96 97 08/09/18 08/09/18 08/09/18 01:10 02:00 03:00 Temperature Heart Rate 85 Heart Rate [ 91 80 Monitoring electrodes] Respiratory 22 21 Rate Blood Pressure Blood Pressure [Left Brachial artery] Blood Pressure 120/70 109/83 H [Right Brachial artery] O2 Saturation 96 98 08/09/18 08/09/18 08/09/18 03:05 03:30 04:00 Temperature 36.6 C Heart Rate 77 86 Heart Rate [ 82 Monitoring electrodes] Respiratory 24 Rate Blood Pressure Blood Pressure [Left Brachial artery] Blood Pressure 104/71 [Right Brachial artery] O2 Saturation 95 08/09/18 08/09/18 08/09/18 05:00 06:00 07:10 Temperature Heart Rate Heart Rate [ 84 86 99 Monitoring electrodes] Respiratory 19 22 22 Rate Blood Pressure Blood Pressure [Left Brachial artery] Blood Pressure 108/72 103/73 116/96 H [Right Brachial artery] O2 Saturation 97 97 96 08/09/18 08/09/18 08/09/18 07:18 07:44 08:00 Temperature 36.6 C Heart Rate 100 104 H Heart Rate [ 98 Monitoring electrodes] Respiratory 18 24 Rate Blood Pressure Blood Pressure [Left Brachial artery] Blood Pressure 122/75 [Right Brachial artery] O2 Saturation 96 08/09/18 08/09/18 08/09/18 09:00 09:59 10:00 Temperature Heart Rate Heart Rate [ 107 H 105 H Monitoring electrodes] Respiratory 26 H 26 H Rate Blood Pressure 128/92 H Blood Pressure [Left Brachial artery] Blood Pressure 128/92 H 138/72 H [Right Brachial artery] O2 Saturation 97 94 Oxygen O2 Source Oxymizer Oxygen Flow Rate 4 I&O (Last 24 Hrs): Intake and Output Totals x24h 08/07/18 08/08/18 08/09/18 23:59 23:59 23:59 Intake Total 152.700 664.267 Output Total 8 208 Balance 144.700 456.267 General: Alert, Oriented x3 HEENT: Mucous membr. moist/pink, Other (On oximizer) Neck: Supple Neuro: Non Focal, Other (R pupil larger than L, intermittently confused, garbled speech intermittently) Cardiovascular: No murmurs, Other (Very distant heart sounds) Respiratory: Other (Poor air movement, no rales or wheezing) Abdomen: Soft Extremities: No edema - Results Results: Laboratory Results WBC 5.1 x10^3/uL (4.8-10.8) 08/09/18 04:41 RBC 3.96 10^6/uL (4.70-6.10) L 08/09/18 04:41 Hgb 13.7 g/dL (14.0-18.0) L 08/09/18 04:41 Hct 41.0 % (42.0-52.0) L 08/09/18 04:41 MCV 103.5 fL (80.0-94.0) H 08/09/18 04:41 MCH 34.5 pg (27.0-31.0) H 08/09/18 04:41 MCHC 33.4 g/dL (32.0-36.0) 08/09/18 04:41 RDW 17.3 % (12.0-15.0) H 08/09/18 04:41 Plt Count 99 10^3/uL (130-450) L 08/09/18 04:41 MPV 8.1 fL (7.4-11.4) 08/09/18 04:41 Neut # (Auto) 4.5 10^3/uL (1.5-6.6) 08/09/18 04:41 Lymph # (Auto) 0.3 10^3/uL (1.5-3.5) L 08/09/18 04:41 [place] # (Auto) 0.3 10^3/uL (0.0-1.0) 08/09/18 04:41 Eos # (Auto) 0.0 10^3/uL (0.0-0.7) 08/09/18 04:41 Baso # (Auto) 0.0 10^3/uL (0.0-0.1) 08/09/18 04:41 Absolute Nucleated RBC 0.00 x10^3/uL 08/09/18 04:41 Nucleated RBC % 0.0 /100WBC 08/09/18 04:41 PT 14.7 secs (9.9-12.6) H 08/08/18 11:26 INR 1.3 (0.8-1.2) H 08/08/18 11:26 APTT 29.3 secs (24.9-33.3) 08/08/18 11:26 Bld Gas Analysis Time 08:15 08/09/18 08:15 Sample Site RIGHT RADIAL 08/09/18 08:15 ABG pH 7.44 (7.35-7.45) 08/09/18 08:15 ABG pCO2 30 mmHg (34-45) L 08/09/18 08:15 ABG pO2 74 mmHg (80-100) L 08/09/18 08:15 ABG HCO3 19.4 mmol/L (22.0-26.0) L 08/09/18 08:15 ABG Total CO2 20.3 MMOL/L (21.0-29.0) L 08/09/18 08:15 ABG O2 Saturation 95 % (94-98) 08/09/18 08:15 ABG Base Excess -3.5 mmol/L (-2.0-3.0) L 08/09/18 08:15 Yogesh Test POSITIVE 08/09/18 08:15 O2 Delivery Device OXYMIZER 08/09/18 08:15 O2 Liters/Min 4.00 LPM 08/09/18 08:15 Sodium 134 mmol/L (135-145) L 08/09/18 04:41 Potassium 4.7 mmol/L (3.5-5.0) 08/09/18 04:41 Chloride 102 mmol/L (101-111) 08/09/18 04:41 Carbon Dioxide 17 mmol/L (21-32) L 08/09/18 04:41 Anion Gap 15.0 (6-13) H 08/09/18 04:41 BUN 34 mg/dL (6-20) H 08/09/18 04:41 Creatinine 1.7 mg/dL (0.6-1.2) H 08/09/18 04:41 Estimated GFR (MDRD) 39 (>89) L 08/09/18 04:41 Glucose 304 mg/dL (70-100) H 08/09/18 04:41 Glycated Hemoglobin 5.8 % (4.6-6.2) 08/08/18 17:50 Estim Average Glucose 120 (70-100) H 08/08/18 17:50 Calcium 9.4 mg/dL (8.5-10.3) 08/09/18 04:41 Phosphorus 5.3 mg/dL (2.5-4.6) H 08/09/18 04:41 Magnesium 2.0 mg/dL (1.7-2.8) 08/09/18 04:41 Total Bilirubin 2.1 mg/dL (0.2-1.0) H 08/09/18 04:41 AST 172 IU/L (10-42) H 08/09/18 04:41 ALT 222 IU/L (10-60) H 08/09/18 04:41 Alkaline Phosphatase 128 IU/L (42-121) H 08/09/18 04:41 Troponin I 3.74 ng/mL (<0.49) H* 08/09/18 08:37 B-Natriuretic Peptide 489 pg/mL (5-100) H 08/08/18 11:26 Total Protein 7.5 g/dL (6.7-8.2) 08/09/18 04:41 Albumin 3.2 g/dL (3.2-5.5) 08/09/18 04:41 Globulin 4.3 g/dL (2.1-4.2) H 08/09/18 04:41 Albumin/Globulin Ratio 0.7 (1.0-2.2) L 08/09/18 04:41 Lipase 44 U/L (22-51) 08/08/18 11:26 Urine Color LT. YELLOW 08/08/18 16:25 Urine Clarity CLOUDY (CLEAR) 08/08/18 16:25 Urine pH 5.5 PH (5.0-7.5) 08/08/18 16:25 Ur Specific [place] >=1.030 (1.002-1.030) H 08/08/18 16:25 Urine Protein 100 mg/dL (NEGATIVE) H 08/08/18 16:25 Urine Glucose (UA) NEGATIVE mg/dL (NEGATIVE) 08/08/18 16:25 Urine Ketones TRACE mg/dL (NEGATIVE) 08/08/18 16:25 Urine Occult Blood TRACE-INTA (NEGATIVE) 08/08/18 16:25 Urine Nitrite NEGATIVE (NEGATIVE) 08/08/18 16:25 Urine Bilirubin NEGATIVE (NEGATIVE) 08/08/18 16:25 Urine Urobilinogen 0.2 (NORMAL) E.U./dL (NORMAL) 08/08/18 16:25 Ur Leukocyte Esterase NEGATIVE (NEGATIVE) 08/08/18 16:25 Urine RBC None Seen /HPF (0-5) 08/08/18 16:25 Urine WBC 0-3 /HPF (0-3) 08/08/18 16:25 Ur Squamous Epith Cells NONE SEEN (<= Few) 08/08/18 16:25 Amorphous Sediment Marked /LPF 08/08/18 16:25 Urine Bacteria None Seen /HPF (None Seen) 08/08/18 16:25 Urine Culture Comments NOT INDICATED 08/08/18 16:25 Nasal Screen MRSA (PCR) NEGATIVE (NEGATIVE) 08/08/18 14:49 Last Dose Date 08/09/18 08/09/18 08:37 Last Dose Time 07:44 08/09/18 08:37 Digoxin 3.3 ng/mL H* 08/09/18 08:37 - Procedures Procedures: Procedures REPLACEMENT OF LEFT LENS WITH SYNTH SUB, PERC APPROACH (12/06/15) REPLACEMENT OF RIGHT LENS WITH SYNTH SUB, PERC APPROACH (11/15/15) ROTATOR CUFF REPAIR (03/06/14)
[2018-08-09] MEDS: ALLOPURINOL 100 MG TABLET PO SCH (10:55)
[2018-08-09] MEDS: MIN OIL/DIMETHICON/COCONUT OIL 92 GM TUBE TOP PRN ×2 (11:00→19:45)
[2018-08-09] MEDS ORDERED: diltiaZEM 30 MG TABLET PO SCH (12:00)
[2018-08-09] MEDS: AZITHROMYCIN 250 MG TABLET PO SCH (12:10)
[2018-08-09] MEDS: cefTRIAXone 2 GM in SODIUM CHLORIDE 0.9% MINIBAG 100 ML IV SCH (12:11)
[2018-08-09] MEDS: SPIRONOLACTONE 25 MG TABLET PO SCH (16:35)
[2018-08-09] MEDS ORDERED: HALOPERIDOL 5 MG/ML VIAL IVP SCH (21:17)
[2018-08-09] MEDS ORDERED: LORazepam 2 MG/ML VIAL IVP STA (23:12)
[2018-08-10] MEDS: SODIUM CHLORIDE FLUSH 0.9% 10 ML SYRINGE IVP SCH ×3 (00:04→18:19)
[2018-08-10] MEDS: diltiaZEM 30 MG TABLET PO SCH ×4 (00:04→20:29)
[2018-08-10 05:06] LABS: BASOPHILS % (AUTO) 0.1 %; HGB - HEMOGLOBIN 13.3 g/dL (14.0-18.0); LYMPHOCYTES # (AUTO) 0.5 10^3/uL (1.5-3.5); LYMPHOCYTES % (AUTO) 4.6 %; MEAN CORPUSCULAR HEMOGLOBIN 34.2 pg (27.0-31.0); MEAN CORPUSCULAR HGB CONC 33.1 g/dL (32.0-36.0); MEAN CORPUSCULAR VOLUME 103.3 fL (80.0-94.0); MEAN PLATELET VOLUME 8.2 fL (7.4-11.4); MONOCYTES # (AUTO) 0.6 10^3/uL (0.0-1.0); MONOCYTES % (AUTO) 6.3 %; NEUTROPHILS # (AUTO) 8.8 10^3/uL (1.5-6.6); PLT - PLATELET COUNT 96 10^3/uL (130-450); RED BLOOD COUNT 3.89 10^6/uL (4.70-6.10); RED CELL DISTRIBUTION WIDTH 16.1 % (12.0-15.0); WHITE BLOOD COUNT 9.9 x10^3/uL (4.8-10.8)
[2018-08-10 05:19] LABS: ALBUMIN 3.2 g/dL (3.2-5.5); ALBUMIN/GLOBULIN RATIO 0.9 (1.0-2.2); BILIRUBIN,TOTAL 1.2 mg/dL (0.2-1.0); CREATININE 1.8 mg/dL (0.6-1.2); TOTAL PROTEIN 6.9 g/dL (6.7-8.2)
[2018-08-10 05:21] LABS: DIGOXIN 0.7 ng/mL
[2018-08-10 06:15] LABS: MAGNESIUM 2.3 mg/dL (1.7-2.8); PHOSPHORUS 3.8 mg/dL (2.5-4.6)
[2018-08-10] MEDS: FUROSEMIDE 20 MG/2 ML VIAL IVP SCH ×2 (06:28→14:01)
[2018-08-10] MEDS: LEVALBUTEROL 1.25 MG/3 ML NEB INH PRN ×4 (07:37→19:45)
[2018-08-10] MEDS: IPRATROPIUM 0.2 MG/ML NEB INH SCH ×4 (07:38→19:45)
[2018-08-10] MEDS ORDERED: METOPROLOL SUCCINATE 25 MG TABLET PO SCH (08:00)
[2018-08-10] MEDS: AZITHROMYCIN 250 MG TABLET PO SCH (08:19)
[2018-08-10] MEDS: ALLOPURINOL 100 MG TABLET PO SCH (08:19)
[2018-08-10] MEDS: ASPIRIN CHEW 81 MG TABLET PO SCH (08:20)
[2018-08-10] MEDS: SPIRONOLACTONE 25 MG TABLET PO SCH (08:21)
[2018-08-10] MEDS: guaiFENesin 600 MG TABLET PO SCH (08:21)
[2018-08-10] MEDS: METOPROLOL SUCCINATE 25 MG TABLET PO SCH ×2 (08:21→20:29)
[2018-08-10] MEDS: INSULIN ASPART 300 UNIT/3 ML PEN SUBQ SCH ×3 (08:44→18:18)
[2018-08-10] MEDS ORDERED: TAMSULOSIN 0.4 MG CAPSULE PO SCH (09:00)
[2018-08-10] MEDS ORDERED: FUROSEMIDE 40 MG/4 ML VIAL ONE (09:53)
[2018-08-10] MEDS ORDERED: MORPHINE 2 MG/ML SYRINGE ONE (09:53)
[2018-08-10] MEDS: MORPHINE 2 MG/ML SYRINGE IVP PRN (09:54)
[2018-08-10] MEDS: FUROSEMIDE 40 MG/4 ML VIAL IVP STA ×2 (09:56→13:58)
[2018-08-10] MEDS ORDERED: METOPROLOL 5 MG/5 ML VIAL IVP PRN (10:27)
[2018-08-10] MEDS ORDERED: OLANZapine 10 MG VIAL IM ONE (10:28)
[2018-08-10] MEDS: FAMOTIDINE 20 MG/2 ML VIAL IVP SCH ×2 (11:02→11:06)
[2018-08-10] MEDS: ENOXAPARIN 80 MG/0.8 ML SYRINGE SUBQ SCH ×2 (11:06→20:31)
[2018-08-10] MEDS: cefTRIAXone 2 GM in SODIUM CHLORIDE 0.9% MINIBAG 100 ML IV SCH (11:07)
[2018-08-10] MEDS ORDERED: LORazepam 2 MG/ML VIAL IVP PRN (11:46)
[2018-08-10] MEDS: POLYETHYLENE GLYCOL 3350 17 GM PACKET PO SCH ×2 (12:22→12:58)
[2018-08-10] MEDS: SODIUM CHLORIDE FLUSH 0.9% 10 ML SYRINGE IVP PRN (14:01)
--- NOTE | 2018-08-10 16:25 | PROVIDER PROGRESS NOTE ---
Subjective - Prog Note Date Prog Note Date: 08/10/18 Prog Note Time: 16:22 - Subjective Pt reports feeling: Improved (Since yesterday he has been gradually d eteriorating with confusion. At first it was attributed to steroids and the steroids were stopped. He had some momentary improvement, was able to sit up in a chair yesterday evening. Is eating some food. Overnight, he deteriorated he has been on BiPAP since this morning. When we take him off BiPAP to eat, he does not do well. He has been wheezing, gurgling. Very confused, trying to climb out of bed. His left last night exhausted and ended up being seen in the emergency room for syncope and dehydration. She has not been here today because family wants her to rest at home. 1 of his sons was here this morning and this afternoon. He is very concerned because dad is definitely taken a turn for the worse. He recognizes that his father was eventually going to from his liver cancer, and that they have been anticipating this. But now that his overall condition has severely deteriorated, it is so much faster than he thought it was going to be. Just last week his dad was tinkering in the shop, fixing cars. And now this week he is so ill.), Worse Subjective: The patient was admitted with sudden shortness of breath. The cause was attributed to atrial fibrillation with RVR. He was also having runs of V. tach in the emergency room. He has a documented cardiomyopathy with an ejection fraction of 30%. He had stopped taking his Lasix probably 2 weeks ago for unclear reasons. He was initially stabilized from his heart rate, and new congestive heart failure. But then was found to be having an end STEMI. He was transferred to the ICU for Cardizem drip. His echocardiogram shows severe mitral regurgitation, tricuspid regurgitation, aortic stenosis, and pulmonary hypertension. Last night he was stabilized enough to sit up in a chair and eat dinner. Between then and now he has had a alta course and began deteriorating from a respiratory perspective in the jailer chief hours of today. Was put on BiPAP. He is agitated, very confused, trying to climb out of bed. He also pulled out his Odonnell with the balloon inflated. He received 40 mg of Lasix this morning. Ate breakfast without incident off BiPAP. Put back on BiPAP. Then we took him off BiPAP for lunch. Became increasingly more sedated. Now a couple of hours that we are finding old food that is pulled in his posterior pharynx, macaroni and cheese. I have had to use Ativan, morphine, and Zyprexa to calm him down. Current Medications - Current Medications Current Medications: Active Medications Acetaminophen (Tylenol) 650 mg PO Q4HR PRN PRN Reason: Pain 1 to 4 Allopurinol (Zyloprim) 200 mg PO DAILY [facility] Last Admin: 08/10/18 08:19 Dose: 200 mg Aspirin ([place] Aspirin) 324 mg PO DAILY [facility] Last Admin: 08/10/18 08:20 Dose: 324 mg Azithromycin (Zithromax) 500 mg PO DAILY [facility] Last Admin: 08/10/18 08:19 Dose: 500 mg Carboxymethylcellulose (Refresh 1% Ophth Drops) 1 drops EACHEYE PRN PRN PRN Reason: Dry Eye Diltiazem HCl (Cardizem) 30 mg PO Q6HR [facility] Last Admin: 08/10/18 11:30 Dose: 30 mg Enoxaparin Sodium (Lovenox) 70 mg SUBQ BID [facility] Last Admin: 08/10/18 11:06 Dose: 70 mg Famotidine (Pepcid) 20 mg IVP DAILY [facility] Last Admin: 08/10/18 11:06 Dose: 20 mg Furosemide (Lasix Inj 20mg Vial) 20 mg IVP BIDDIURETIC [facility] Last Admin: 08/10/18 14:01 Dose: Not Given Guaifenesin (Mucinex) 600 mg PO BID [facility] Last Admin: 08/10/18 08:21 Dose: 600 mg Ceftriaxone Sodium 2 gm/ (Sodium Chloride) 100 mls @ 200 mls/hr IV DAILY [facility] Last Infusion: 08/10/18 11:48 Dose: Infused Insulin Aspart (Novolog) 2 - 10 unit SUBQ 0800,1200,1700,2100 [facility]; Protocol Last Admin: 08/10/18 12:24 Dose: 6 unit Ipratropium [place] (Atrovent) 0.5 mg INH RTQID [facility] Last Admin: 08/10/18 15:11 Dose: 0.5 mg Levalbuterol HCl (Xopenex) 1.25 mg INH RTQ4H PRN PRN Reason: Dyspnea Last Admin: 08/10/18 15:11 Dose: 1.25 mg Lorazepam (Ativan Inj (Vial)) 0.5 mg IVP Q2H PRN PRN Reason: Anxiety Metoprolol Succinate (Toprol Xl) 25 mg PO 0800,1800 [facility] Last Admin: 08/10/18 08:21 Dose: 25 mg Metoprolol Tartrate (Lopressor Inj) 5 mg IVP Q6H PRN PRN Reason: Tachycardia Mineral Oil (Cavilon) 1 applic TOP PRN PRN PRN Reason: Skin Care Last Admin: 08/09/18 19:45 Dose: 1 applic Morphine Sulfate (Morphine) 2 mg IVP Q2H PRN PRN Reason: PAIN Last Admin: 08/10/18 09:54 Dose: 2 mg Polyethylene Glycol (Miralax) 17 gm PO DAILY [facility] Last Admin: 08/10/18 12:58 Dose: Not Given Prochlorperazine Edisylate (Compazine Inj) 10 mg IVP Q6HR PRN PRN Reason: Nausea / Vomiting Sodium Chloride (Normal Saline Flush 0.9%) 10 ml IVP 0100,0900,1700 [facility] Last Admin: 08/10/18 11:03 Dose: 20 ml Sodium Chloride (Normal Saline Flush 0.9%) 10 ml IVP PRN PRN PRN Reason: NEEDED PER PROVIDER ORDERS Last Admin: 08/10/18 14:01 Dose: 10 ml Spironolactone (Aldactone) 12.5 mg PO DAILY [facility] Last Admin: 08/10/18 08:21 Dose: 12.5 mg Tamsulosin HCl (Flomax) 0.4 mg PO DAILY [facility] Last Admin: 08/10/18 08:18 Dose: 0.4 mg Allopurinol 200 mg PO DAILY 11/01/13 glipiZIDE [Glucotrol] 2.5 mg PO DAILY 11/01/13 Metoprolol Tartrate 25 mg PO QPM 04/10/18 SITagliptin [Januvia] 50 mg PO DAILY 04/11/18 Furosemide 40 mg PO DAILY 08/08/18 Lisinopril 10 mg PO DAILY 08/08/18 Metoprolol Tartrate 50 mg PO DAILY 08/08/18 Aspirin 325 mg PO DAILY 08/09/18 Objective - Vital Signs/Intake & Output Vital Signs: Vital Signs Temp Pulse Pulse Resp BP Pulse Ox 08/10/18 16:00 35.6 C L 86 16 103/57 L 94 08/10/18 15:16 89 16 08/10/18 15:00 36.4 C L 89 16 106/61 97 08/10/18 14:00 113 H 15 123/77 95 08/10/18 13:00 131 H 18 121/87 H 90 L 08/10/18 12:56 120 H Intake & Output: Intake & Output 08/07/18 08/08/18 08/09/18 08/10/18 23:59 23:59 23:59 23:59 Intake Total 140.344 5130.267 220 Output Total 8 756 Balance 144.700 398.267 220 - Objective General Appearance: positive: Severe distress, Other (trying to climb out of bed. responds to his step son's voice and can be prompted to calm down. but respiratory distress has resulted in lasix 40 mg this am already and he is still gurgling.) Eyes Bilateral: positive: PERRL, EOMI Neck: negative: Stiff neck, Carotid bruit Respiratory: positive: Wheezes, Rhonchi (gurgling), Other (tachypneic, increased respiratory effort.) Cardiovascular: positive: Irregularly irregular, Tachycardia, Systolic murmur, Gallop/S4. negative: Friction rub Abdomen: positive: Non-tender, No organomegaly, Nml bowel sounds, No distention. negative: Guarding, Rebound Skin: positive: Warm, Pallor Extremities: positive: Full ROM, Pedal edema Neurologic/Psychiatric: positive: CN's nml (2-12) (but may be deaf?), Motor nml, Disoriented to person, Disoriented to place, Disoriented to time, Weakness - Lab Results Fish Bones: 08/10/18 04:42 08/10/18 04:42 Other Labs: Lab Results x24hrs 08/10/18 08/10/18 08/10/18 Range/Units 04:42 04:42 04:42 WBC (4.8-10.8) x10^3/uL RBC (4.70-6.10) 10^6/uL Hgb (14.0-18.0) g/dL Hct (42.0-52.0) % MCV (80.0-94.0) fL MCH (27.0-31.0) pg MCHC (32.0-36.0) g/dL RDW (12.0-15.0) % Plt Count (130-450) 10^3/uL MPV (7.4-11.4) fL Neut # (Auto) (1.5-6.6) 10^3/uL Lymph # (Auto) (1.5-3.5) 10^3/uL Alfalfa # (Auto) (0.0-1.0) 10^3/uL Eos # (Auto) (0.0-0.7) 10^3/uL Baso # (Auto) (0.0-0.1) 10^3/uL Absolute Nucleated RBC x10^3/uL Nucleated RBC % /100WBC Sodium 132 L (135-145) mmol/L Potassium 4.2 (3.5-5.0) mmol/L Chloride 98 L (101-111) mmol/L Carbon Dioxide 22 (21-32) mmol/L Anion Gap 12.0 (6-13) BUN 52 H (6-20) mg/dL Creatinine 1.8 H (0.6-1.2) mg/dL Estimated GFR (MDRD) 36 L (>89) Glucose 172 H (70-100) mg/dL Calcium 9.0 (8.5-10.3) mg/dL Phosphorus 3.8 (2.5-4.6) mg/dL Magnesium 2.3 (1.7-2.8) mg/dL Total Bilirubin 1.2 H (0.2-1.0) mg/dL AST 116 H (10-42) IU/L ALT 199 H (10-60) IU/L Alkaline Phosphatase 106 (42-121) IU/L Troponin I (<0.49) ng/mL Total Protein 6.9 (6.7-8.2) g/dL Albumin 3.2 (3.2-5.5) g/dL Globulin 3.7 (2.1-4.2) g/dL Albumin/Globulin Ratio 0.9 L (1.0-2.2) Last Dose Date UNK Last Dose Time UNK Digoxin 0.7 ng/mL 08/10/18 08/09/18 Range/Units 04:42 16:19 WBC 9.9 (4.8-10.8) x10^3/uL RBC 3.89 L (4.70-6.10) 10^6/uL Hgb 13.3 L (14.0-18.0) g/dL Hct 40.2 L (42.0-52.0) % MCV 103.3 H (80.0-94.0) fL MCH 34.2 H (27.0-31.0) pg MCHC 33.1 (32.0-36.0) g/dL RDW 16.1 H (12.0-15.0) % Plt Count 96 L (130-450) 10^3/uL MPV 8.2 (7.4-11.4) fL Neut # (Auto) 8.8 H (1.5-6.6) 10^3/uL Lymph # (Auto) 0.5 L (1.5-3.5) 10^3/uL Alfalfa # (Auto) 0.6 (0.0-1.0) 10^3/uL Eos # (Auto) 0.0 (0.0-0.7) 10^3/uL Baso # (Auto) 0.0 (0.0-0.1) 10^3/uL Absolute Nucleated RBC 0.00 x10^3/uL Nucleated RBC % 0.0 /100WBC Sodium (135-145) mmol/L Potassium (3.5-5.0) mmol/L Chloride (101-111) mmol/L Carbon Dioxide (21-32) mmol/L Anion Gap (6-13) BUN (6-20) mg/dL Creatinine (0.6-1.2) mg/dL Estimated GFR (MDRD) (>89) Glucose (70-100) mg/dL Calcium (8.5-10.3) mg/dL Phosphorus (2.5-4.6) mg/dL Magnesium (1.7-2.8) mg/dL Total Bilirubin (0.2-1.0) mg/dL AST (10-42) IU/L ALT (10-60) IU/L Alkaline Phosphatase (42-121) IU/L Troponin I 3.20 H* (<0.49) ng/mL Total Protein (6.7-8.2) g/dL Albumin (3.2-5.5) g/dL Globulin (2.1-4.2) g/dL Albumin/Globulin Ratio (1.0-2.2) Last Dose Date Last Dose Time Digoxin ng/mL Assessment/Plan - Problem List (1) Acute non-ST elevation myocardial infarction (NSTEMI) Impression: Troponin continued to rise until last night. Then dropped. None checked this am. With more respiratory distress, will see if he has another rise. Continue medical management: asa, B-shaina, statin, diuretics. No ANAID until stabilized w BP. Sometime he is hypotensive. . No intervention or transfers to higher level of care is desired. He has global hypokinesis with an ejection fraction of 30%. The left atrium is severely dilated. He has a moderately dilated right ventricle with normal function. The right atrium is severely dilated. Pacemaker leads are noted. There is part moderate pulmonary hypertension with pulmonary artery systolic pressure of 48 mmHg. He has moderate to severe mitral regurgitation, large pleural effusions, and rapid A. fib. Check troponin now and in 6 hours. I have explained to his son that I think the prognosis is grim. This gentleman has had an N STEMI, has severe valvular heart disease, pleural effusions, acute systolic congestive heart failure, atrial fibrillation all in the face of someone who has metastatic hepatocellular carcinoma there is no longer amenable to treatment. The son would like to have mom get as much rest as possible today. She collapsed yesterday and had to be taken to the emergency room. He will then bring her back this afternoon. I have explained to him that his dad may not survive this admission. But if he does survive this admission what would he like placement to be since his elderly mom cannot take care of his dad by herself. (2) Confusion Assessment/Plan: Head CT did not show an acute stroke or any hemorrhage. Possibly he is fidgety, picking at connections and confused due to high dose steroids. Steroids stopped. Zyprexa one dose. Morphine and ativan added to help w agitation He is now more sedated but still confused. Son wants dad to stay sedated. If we have to control him w meds he would like that. Restraints also ordered. (3) Lung infiltrate Assessment/Plan: The family states that he has had "lung collapse" in the past . Will treat as CAP using Zithromax po and iv Ceftriaxone. Day #2 today. Sputum culture ordered. On gram stain, nml respiratory angeles seen. Will order Acapella flutter valve for expectoration and IS for the atelectasis. But he can't cooperate to to this. (4) ADELITA (acute kidney injury) Assessment/Plan: Likely from his diuresis, which he still needs, based on repeat CXR which showed no significant change in CHF Follow BMP daily. 1.7>1.8 today. (5) Acute on chronic systolic CHF (congestive heart failure), NYHA class 4 Assessment/Plan: It is worsening and not improving. Diuresis treated with increased Lasix today. Spironolactone 12.5 mg daily added 08/09. Continue Metoprolol, preferred over Coreg due to B-1 selective B-shaina for a COPDer. No ANAID or ARB due to borderline low BP and climbing creat Follow BMP and Mg daily. (6) Cardiogenic shock Assessment/Plan: Resolved, without using pressors, improved when tachycardia was controlled. (7) Atrial fibrillation with RVR Assessment/Plan: The HR is controlled on iv Cardizem drip >> po Cardizem and he is able to take po Metoprolol bid. He needed Dig iv 08/08, when BP was low and he did get an iv dise this am. A randome Dig level was done 08/09 (not realizing he got a dose iv this am).The result of 3.3 is therefore not a trough level, so he may not have Dig toxicity. Dig level today is 0.7 His HR was controlled with Metoprolol po and Cardizem po yesterday but this am back to being tachy. Check troponin. He is also on therapeutic Lovenox (not prophylactic dose) and will need determination if he should get po antivoagulation, since he had a peritoneal bleed when he was on Coumadin, years ago. (8) HCC (hepatocellular carcinoma) Assessment/Plan: His prognosis is 3 mos to 1.5 years, per the Oncologist visit 1 month ago, reported to me by daughter. (9) DM2 (diabetes mellitus, type 2) Assessment/Plan: Glucose yesterday was 259, 268, 297, 337. Steroids were stopped and glucose this morning is 178 and by late morning 261 Carb-controlled diet, fingerstick glu checks to be covered with ss Insulin.
[2018-08-10] MEDS: CARBOXYMETHYLCELLULOSE OPHTH DROPS EACHEYE PRN ×3 (18:42→23:52)
[2018-08-10] MEDS: MIN OIL/DIMETHICON/COCONUT OIL 92 GM TUBE TOP PRN (18:43)
[2018-08-10] MEDS: INSULIN REGULAR HUMAN 100 UNIT/1 ML 10 ML MDV SUBQ SCH (19:06)
[2018-08-10] MEDS: diltiaZEM INJ 5 MG/ML VIAL IVP SCH (22:07)
[2018-08-11] MEDS: SODIUM CHLORIDE FLUSH 0.9% 10 ML SYRINGE IVP SCH ×3 (00:01→10:32)
[2018-08-11] MEDS: CARBOXYMETHYLCELLULOSE OPHTH DROPS EACHEYE PRN ×2 (02:00→06:20)
[2018-08-11] MEDS: diltiaZEM INJ 5 MG/ML VIAL IVP SCH ×3 (04:22→17:33)
[2018-08-11 05:37] LABS: BASOPHILS % (AUTO) 0.1 %; HGB - HEMOGLOBIN 12.8 g/dL (14.0-18.0); LYMPHOCYTES # (AUTO) 0.1 10^3/uL (1.5-3.5); LYMPHOCYTES % (AUTO) 6.6 %; MEAN CORPUSCULAR HEMOGLOBIN 34.2 pg (27.0-31.0); MEAN CORPUSCULAR HGB CONC 32.3 g/dL (32.0-36.0); MEAN CORPUSCULAR VOLUME 105.8 fL (80.0-94.0); MEAN PLATELET VOLUME 8.3 fL (7.4-11.4); MONOCYTES # (AUTO) 0.6 10^3/uL (0.0-1.0); MONOCYTES % (AUTO) 29.1 %; NEUTROPHILS # (AUTO) 1.4 10^3/uL (1.5-6.6); NEUTROPHILS % (AUTO) 64.2 %; PLT - PLATELET COUNT 123 10^3/uL (130-450); RED BLOOD COUNT 3.73 10^6/uL (4.70-6.10); RED CELL DISTRIBUTION WIDTH 17.4 % (12.0-15.0); WHITE BLOOD COUNT 2.2 x10^3/uL (4.8-10.8)
[2018-08-11 05:48] LABS: ALBUMIN/GLOBULIN RATIO 0.8 (1.0-2.2); BILIRUBIN,TOTAL 1.3 mg/dL (0.2-1.0); CALCIUM 8.7 mg/dL (8.5-10.3); CREATININE 2.8 mg/dL (0.6-1.2); MAGNESIUM 2.3 mg/dL (1.7-2.8); PHOSPHORUS 8.5 mg/dL (2.5-4.6); TOTAL PROTEIN 6.7 g/dL (6.7-8.2)
[2018-08-11] MEDS: INSULIN REGULAR HUMAN 100 UNIT/1 ML 10 ML MDV SUBQ SCH ×4 (06:14→17:34)
[2018-08-11] MEDS: FUROSEMIDE 20 MG/2 ML VIAL IVP SCH (06:15)
[2018-08-11] MEDS: SODIUM CHLORIDE FLUSH 0.9% 10 ML SYRINGE IVP PRN (06:15)
[2018-08-11 06:16] LABS: PLATELET ESTIMATE, MANUAL DECREASED (<130,000) (NORMAL)
[2018-08-11] MEDS: IPRATROPIUM 0.2 MG/ML NEB INH SCH ×2 (07:20→11:34)
[2018-08-11] MEDS: LEVALBUTEROL 1.25 MG/3 ML NEB INH PRN (07:20)
[2018-08-11] MEDS: ASPIRIN CHEW 81 MG TABLET PO SCH (08:35)
[2018-08-11] MEDS: POLYETHYLENE GLYCOL 3350 17 GM PACKET PO SCH (08:36)
[2018-08-11] MEDS: ENOXAPARIN 80 MG/0.8 ML SYRINGE SUBQ SCH (09:10)
[2018-08-11] MEDS: cefTRIAXone 2 GM in SODIUM CHLORIDE 0.9% MINIBAG 100 ML IV SCH (09:10)
[2018-08-11] MEDS ORDERED: MORPHINE SOL 10 MG/0.5 ML SYRINGE SL PRN (10:08)
[2018-08-11] MEDS ORDERED: GLYCOPYRROLATE 1 MG/5 ML VIAL SUBQ PRN (10:08)
[2018-08-11] MEDS ORDERED: ONDANSETRON ODT 4 MG TABLET TL PRN (10:08)
[2018-08-11] MEDS ORDERED: ATROPINE 1% OPHTH DROPS 2 ML SL PRN (10:08)
[2018-08-11] MEDS ORDERED: PROCHLORPERAZINE 25 MG SUPP PR PRN (10:08)
[2018-08-11] MEDS: MORPHINE 2 MG/ML SYRINGE IVP PRN (10:31)
--- NOTE | 2018-08-11 11:07 | MISCELLANEOUS PROVIDER NOTE ---
Miscellaneous Provider Note - - Note: 08/11/18 10:51 This am, family met, including , at the bedside and decided to transition to comfort measures. He was agonal already. Called to pronounce . Patient has no pulse, no pressure, no spontaneous respiration. Family at bedside.
[2018-08-11 11:22] VITALS: BP 0/0
--- NOTE | 2018-08-16 22:50 | DISCHARGE SUMMARY ---
Physician: Cora Mckeon MD DATE OF ADMISSION: 08/08/2018 DATE OF DISCHARGE: 08/11/2018 DISCHARGE DIAGNOSES 1. Acute aeu-UT-bctiafbtd myocardial infarction. 2. Uiuix-ev-lzqqzwo combined systolic and diastolic heart failure, stage 4, due to valvular heart disease. 3. Confusion with metabolic encephalopathy. 4. Lung infiltrate. 5. Acute kidney injury. 6. Atrial fibrillation with rapid ventricular response. 7. Hepatocellular carcinoma. 8. Type 2 diabetes mellitus, without complication, not on long-term use of insulin. PRINCIPAL PROCEDURES 1. Normal respiratory sputum culture. Normal respiratory angeles. 2. Echocardiogram with normal ventricular size, moderate global hypokinesis and ejection fraction of 30%. Left atrium is severely dilated. Moderately dilated right ventricle with normal function. Right atrium is severely dilated. Pacemaker leads noted. Moderate pulmonary hypertension with PASP 48 mmHg. Hygozdva-js-dphaal mitral, likely functional regurgitation. Large pleural effusions, rapid atrial fibrillation. 3. Head CT with no evidence of acute cortical infarction, intracranial hemorrhage or mass effect. He has sequela of a remote left frontal periventricular white matter infarct. 4. Chest x-rays on 08/08/2018 and 08/09/2018 showed a large right-sided pleural effusion, right lung consolidation from compression atelectasis, small left basilar consolidation, a background of pulmonary vascular congestion and interstitial edema. Same as prior study. HOSPITAL COURSE: The patient is an 78-year-old man who has a history of atrial fibrillation, noted during chest pain admission here in March 2018. He also has a history of liver cancer, COPD, cardiomyopathy, hypertension and diabetes, on oral agents.He was told by his oncologist that he is no longer a candidate for treatment of his hepatocellular cancer 2 weeks ago. He has been making his peace with that bad news. 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 The patient stopped taking his Lasix on his own, initially we thought a week ago, but as the admission went on probably 3 weeks prior to admission. He states he does not know why he stopped the Lasix, but he thinks that he got confused about medications being given to him for his cancer versus medicines for his heart. He may have stopped those medicines thinking that with the doctor wanted him to do. He developed a rapid heart rate that was making him very short of breath at home. Ambulance was called and his heart rate was over 200. He was given diltiazem 20 mg IV bolus and the heart rate dropped only to 190s with that. He was also given a DuoNeb en route. In the emergency room, he was felt to be in severe acute respiratory distress with hypoxia, and pursed lip breathing and tripoding. There was a short burst of ventricular tachycardia on top of the atrial fibrillation. He was given adenosine 6 mg and then 12 mg, which had no effect. He was then started on a Cardizem drip and admitted to the ICU. He was put on BiPAP after supplemental oxygen did not make him feel good. BiPAP really helped. He denied any chest pain. He had a dry cough for the last 2 weeks that was getting gradually worse, nonproductive. Because he been having bleeding in the past retroperitoneally, he has not been on Coumadin for years. He has only on aspirin for anticoagulation. The patient was put in ICU on telemetry. Troponins showed him to be having an NSTEMI vs. severe demand ischemia. He was also treated for COPD exacerbation with steroids, nebulizers, and BiPAP. On that first night, he was felt to be severely ill and family was warned that he may not make it. Cardizem drip eventually finally slowed down his heart rate and he was begun on his oral beta shaina, because we suspected he had a poor ventricle. His echocardiogram confirmed poor contractility and pulmonary hypertension. Over the next 2 days, he seemed to gradually improve. His shortness of breath lessened, his rate was controlled, and he was able to be transitioned off of the diltiazem drip. Then, he started deteriorating with confusion, and it was attributed to steroids so steroids were stopped. He had some momentary improvement with his mentation and was able to sit up in a chair on the evening of 08/09/2018, and was eating some food, but then on the evening of 08/09/2018 into the public relations director hours of 08/10/2018, he continued to deteriorate, be put on BiPAP. Very confused, trying to climb out of bed. His was exhausted and went home. While she was eating dinner, she had syncope and had to be brought to the emergency room for herself. He was felt to be back in atrial fibrillation with rapid ventricular response. He had no further runs of V-tach. Troponins peaked at 3.20 on 08/09/2018, and started going down by 08/10/2018. However, the patient really never recovered from that night of confusion and deterioration. By the morning of 08/11/2018, he was unresponsive. Creatinine had climbed to 2.8. Liver enzymes were starting to climb, probably because of passive congestion. We recognize he had a massive right pleural effusion, but was not a candidate for thoracentesis. Son came to the bedside many times over the course of the 08/10/2018 and the 08/11/2018. He finally brought his mom to come visit her , so she could say her goodbyes. The family felt that they did not want more done. They did not want him transferred to a higher level of care. He has hepatocellular carcinoma and they felt that and that was going to take him. Up until 2 weeks ago, he was actually doing fairly well and they did not want him to suffer anymore. As such, the patient at 10:51 in the morning with his family at the bedside. Greater than 30 minutes were spent coordinating conversations with family, comforting the , treating the patient, and pronouncement of . TD: 08/16/2018 19:13 MICHAEL
== END 2018-08-11 21:32 | disposition expired ==
LOC: EDUNIT# → ED 11:01 → ICU 12:05 → UNDOADMIN 12:05 → UNDODISIN 08-11 21:32
PROVIDERS: ADMIT Internal Medicine; ATTEND Specialist
DX: I21.4 Non-ST elevation (NSTEMI) myocardial infarction (principal); R06.01 Orthopnea; C22.9 Malignant neoplasm of liver, not specified as primary or secondary; I20.9 Angina pectoris, unspecified; I50.43 Acute on chronic combined systolic (congestive) and diastolic (congestive) heart failure; I26.09 Other pulmonary embolism with acute cor pulmonale; G93.41 Metabolic encephalopathy; N17.9 Acute kidney failure, unspecified; C22.8 Malignant neoplasm of liver, primary, unspecified as to type; J44.1 Chronic obstructive pulmonary disease with (acute) exacerbation; I47.2 Ventricular tachycardia; J90 Pleural effusion, not elsewhere classified; I48.91 Unspecified atrial fibrillation; E11.9 Type 2 diabetes mellitus without complications; I11.0 Hypertensive heart disease with heart failure; R57.0 Cardiogenic shock; I08.3 Combined rheumatic disorders of mitral, aortic and tricuspid valves; Z66 Do not resuscitate; T50.1X6A Underdosing of loop [high-ceiling] diuretics, initial encounter; T38.0X5A Adverse effect of glucocorticoids and synthetic analogues, initial encounter; T50.2X5A Adverse effect of carbonic-anhydrase inhibitors, benzothiadiazides and other diuretics, initial encounter; Y92.230 Patient room in hospital as the place of occurrence of the external cause; Z95.5 Presence of coronary angioplasty implant and graft; Z95.810 Presence of automatic (implantable) cardiac defibrillator; Z87.891 Personal history of nicotine dependence; Z79.82 Long term (current) use of aspirin; Z79.84 Long term (current) use of oral hypoglycemic drugs; Z79.899 Other long term (current) drug therapy
CPT/HCPCS: 36415; 36600; 70450; 71045; 80053; 80162; 81001; 82803; 83036; 83690; 83735; 83880; 84100; 84484; 85025; 85610; 85730; 87070; 87150; 87205; 93005; 93306; 94640; 94660; 96365; 96375; 99291; A6250; A9270; J0153; J1650; J1815; J2060; J2270; 87086; 99284